=== PATIENT | female | born 1965 | race Caucasian/White ===

== ENCOUNTER → 2016-11-29 | Outpatient (CLI) | payer BC ==
[~2016-11-29] MED LIST: CHOLTAB3 PO; INSPMPHMLG; PRLSR20 PO
[2016-11-29 18:05] LABS: ALT/SGPT 23 U/L (12-78); AST/SGOT 22 U/L (15-37); BLOOD UREA NITROGEN 14 mg/dl (7-18); BUN/CREATININE RATIO 16.1 (10-20); CALCIUM 8.5 mg/dl (8.5-10.1); CARBON DIOXIDE 27 mmol/L (21-32); CHLORIDE 107 mmol/L (98-107); CREATININE 0.89 mg/dl (0.60-1.20); GLUCOSE 144 mg/dl (70-99); POTASSIUM 4.1 mmol/L (3.5-5.1); SODIUM 141 mmol/L (136-145)
[2016-11-29 18:16] LABS: ALB/GLOB RATIO 1.2 (0.9-2); ALKALINE PHOSPHATASE 57 U/L (45-117)
[2016-11-30 06:46] LABS: ESTIMATED AVERAGE GLUCOSE 200 mg/dl; HA1C FLAG Normal (Normal)
== END | disposition home or self-care (01) ==
LOC: C.LAB1850 16:53
PROVIDERS: ATTEND Internal Medicine
DX: E06.3 Autoimmune thyroiditis (principal); E55.9 Vitamin D deficiency, unspecified; E10.9 Type 1 diabetes mellitus without complications

== ENCOUNTER → 2017-04-22 | Outpatient (CLI) | payer BC ==
[2017-04-22 16:36] LABS: CHOLESTEROL/HDL RATIO 2.1
[2017-04-22 17:10] LABS: RATIO 25.1 mcg/mg (0-30.0)
[2017-04-23 07:06] LABS: ESTIMATED AVERAGE GLUCOSE 203 mg/dl; HA1C FLAG Normal (Normal)
== END | disposition home or self-care (01) ==
LOC: C.LAB1850 15:12
PROVIDERS: ATTEND Internal Medicine
DX: E10.9 Type 1 diabetes mellitus without complications (principal); E55.9 Vitamin D deficiency, unspecified

== ENCOUNTER → 2017-06-03 | Outpatient (CLI) | payer BC ==
--- NOTE | 2017-06-04 14:37 | MAMMOGRAPHY REPORT ---
BILATERAL DIGITAL SCREENING MAMMOGRAM TOMOSYNTHESIS WITH CAD: 06/03/2017 CLINICAL HISTORY: Routine screening. Patient has no complaints. TECHNIQUE: Breast tomosynthesis in addition to standard 2D mammography was performed. Current study was also evaluated with a Computer Aided Detection (CAD) system. COMPARISON: Comparison is made to exams dated: 12/27/2015 mammogram, 12/22/2014 mammogram, 05/19/2012 ben mogram, 11/05/2011 mammogram, 11/05/2011 ultrasound, and 10/30/2011 mammogram - [facility] nter. BREAST COMPOSITION: There are scattered areas of fibroglandular density in both breasts. FINDINGS: Decreased prominence of an asymmetry in the subareolar right breast. Scattered punctate b enign-appearing microcalcifications. No new suspicious mass, architectural distortion or cluster of microcalcifications is seen. IMPRESSION: ACR BI-RADS CATEGORY 1: NEGATIVE There is no mammographic evidence of malignancy. A 1 year screening mammogram is recommended. The pa tient will receive written notification of the results. Approximately 10% of breast cancers are not detected with mammography. A negative mammographic report should not delay biopsy if a clinically suggestive mass is present. Nidia Aparicio M.D. ay/:06/03/2017 16:26:40 [employer] Operator: Courtney AVILES)(Karla), [facility] letter sent: Normal 1/2 BI-RADS Code: ACR BI-RADS Category 1: Negative
== END | disposition home or self-care (01) ==
LOC: C.MAMM 08:36
PROVIDERS: ATTEND Obstetrics & Gynecology
DX: Z12.31 Encounter for screening mammogram for malignant neoplasm of breast (principal)

== ENCOUNTER → 2017-09-25 | Outpatient (CLI) | payer BC | END | disposition home or self-care (01) | LOC: C.PAPS 12:40 | PROVIDERS: ATTEND Obstetrics & Gynecology | DX: Z01.419 Encounter for gynecological examination (general) (routine) without abnormal findings (principal) ==

== ENCOUNTER → 2017-11-04 | Outpatient (CLI) | payer BC | LOC: C.LABSPEC 13:40 | PROVIDERS: ATTEND Physician Assistant | DX: N39.0 Urinary tract infection, site not specified (principal) ==

== ENCOUNTER → 2018-01-01 | Outpatient (CLI) | payer BC ==
[2018-01-02 07:13] LABS: HEMOGLOBIN A1C 8.1 % (4.5-5.6)
== END | disposition home or self-care (01) ==
LOC: C.LAB1850 16:01
PROVIDERS: ATTEND Internal Medicine
DX: E10.9 Type 1 diabetes mellitus without complications (principal)

== ENCOUNTER → 2018-05-21 | Outpatient (CLI) | payer BC ==
[2018-05-21 12:37] LABS: HEMOGLOBIN A1C 9.1 % (4.5-5.6)
[2018-05-21 12:51] LABS: ALBUMIN 3.9 gm/dl (3.4-5.0); ALKALINE PHOSPHATASE 52 U/L (45-117); ALT/SGPT 25 U/L (12-78); AST/SGOT 16 U/L (15-37); BLOOD UREA NITROGEN 11 mg/dl (7-18); CALCIUM 8.9 mg/dl (8.5-10.1); CARBON DIOXIDE 27 mmol/L (21-32); CHOLESTEROL 182 mg/dl (0-200); CREATININE 0.61 mg/dl (0.60-1.20); GLUCOSE 139 mg/dl (70-99); LDL CHOLESTEROL CALCULATED 93 mg/dl; SODIUM 138 mmol/L (136-145); TOTAL PROTEIN 6.9 gm/dl (6.4-8.2)
[2018-05-21 12:56] LABS: CREATININE RANDOM URINE 27.3 mg/dl
== END | disposition home or self-care (01) ==
LOC: C.LAB1850 10:43
PROVIDERS: ATTEND Internal Medicine
DX: E06.3 Autoimmune thyroiditis (principal); R39.9 Unspecified symptoms and signs involving the genitourinary system; E10.9 Type 1 diabetes mellitus without complications; E55.9 Vitamin D deficiency, unspecified

== ENCOUNTER → 2018-06-09 | Outpatient (CLI) | payer BC ==
--- NOTE | 2018-06-09 14:38 | DIAGNOSTIC IMAGING REPORT ---
Thyroid ultrasonography CLINICAL HISTORY: GOITER, SILVER'S THYROIDITIS COMPARISON STUDY: 10/05/2010 FINDINGS: The right lobe of thyroid measures 38 x 13 x 14 mm. The left lobe of thyroid measures 43 x 13 x 18 mm. Both lobes are heterogeneous in echotexture. There is an isoechoic wider than tall 13 x 12 x 6 mm nodule arising from the right isthmus. This remains unchanged in size. There is a lower pole hypoechoic left lobe nodule measuring 6 x 5 x 6 mm. This previously measured 4 x 4 x 3 mm. IMPRESSION: 1. Bilateral thyroid nodules essentially unchanged in size. Diffuse heterogeneous thyroid echotexture consistent with the clinical history of thyroiditis. Electronically signed by: Darrel Wood M.D. 06/09/2018 2:37 PM Dictated Date/Time: 06/09/2018 2:35 PM
== END | disposition home or self-care (01) ==
LOC: C.ULTR 14:03
PROVIDERS: ATTEND Internal Medicine Endocrinology, Diabetes & Metabolism
DX: E04.9 Nontoxic goiter, unspecified (principal); E06.3 Autoimmune thyroiditis

== ENCOUNTER 2021-07-23 17:08 | Inpatient (IN) ==
[2021-07-23] MEDS ORDERED: ONDANSETRON INJ 2 MG/ML 2 ML VIAL IV STA (18:06)
[2021-07-23] MEDS ORDERED: HYDROmorphone INJ 0.5 MG/0.5 ML SYR IV STA (18:06)
--- NOTE | 2021-07-23 18:07 | Emergency Department Note ---
History of Present Illness General Chief complaint: Leg Injury/Pain Stated complaint: FALL, LEG PAIN Time Seen by Provider: 07/23/21 17:47 History of Present Illness Maximum Pain Intensity: 7 This is a 55-year-old female with a history of type I diabetes that presents to the emergency department via private vehicle accompanied by male with complaints of" fall, right hip pain". The patient states that earlier today around 3:20 PM she was stepping over an area and her foot became stuck/hooked causing her to fall. She landed on the right hip. She denies striking her head or loss of con sciousness. Current pain in the right hip at this time is an 8/10. She cannot bear weight to the right lower extremity secondary to pain. Even simple movements of the right hip are quite painful. She denies having pain like this previously. No previous history of right hip fracture. Current pain /10. She points to the right proximal anterior and lateral thigh region as the location of pain. Home Medications Medication Instructions Recorded Confirmed Type aspirin 81 mg tablet,delayed 81 mg PO HS 08/28/18 07/23/21 History release blood sugar diagnostic (OneTouch #200 ea 12/07/19 11/11/20 Rx Ultra Blue Test Strip) cholecalciferol (vitamin D3) 50 4,000 units PO QDL cap 12/22/19 07/23/21 History mcg (2,000 unit) capsule (Vitamin D3) glucagon HCl 1 mg solution for 1 mg SQ Q20M PRN #1 ea 12/25/19 07/23/21 Rx injection (Glucagon (HCl) Emergency Kit) levothyroxine 75 mcg tablet 75 mcg PO QAM #90 tab 09/27/20 07/23/21 Rx omeprazole 20 mg tablet,delayed 20 mg PO QAM #90 tab 11/23/20 07/23/21 Rx release OneTouch Ultra2 Meter #1 ea NS 12/14/20 Rx (blood-glucose meter) OneTouch Ultra Blue Test Strip #200 ea NS 12/21/20 Rx (blood sugar diagnostic) flash glucose sensor (FreeStyle #6 ea 02/13/21 Rx Osorio 2 Sensor) insulin lispro 100 unit/mL 0 unit CONTINUOUS SUBCUTANEOUS 07/23/21 07/23/21 History subcutaneous solution (Humalog INFUSION CONTINOUS U-100 Insulin) simvastatin 20 mg tablet 20 mg PO HS 07/23/21 07/23/21 History Allergies Allergy/AdvReac Type Severity Reaction Status Date / Time Penicillins Allergy Mild Rash Verified 07/23/21 20:46 Sulfa (Sulfonamide Allergy Unknown Unknown Verified 07/23/21 20:46 Antibiotics) adhesive AdvReac Mild SOME TAPE Verified 07/23/21 20:46 IRRITATING amoxicillin AdvReac Mild Rash Verified 07/23/21 20:46 Past Med/Surg History Medical History Diabetes mellitus type 1 diagnosed at age 26 Diabetic peripheral 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 GERD (gastroesophageal reflux disease) Daniel's thyroiditis Hyperlipidemia Hypothyroidism Left ankle sprain PVCs (premature ventricular contractions) Surgical History History of bilateral tubal ligation History of section x2 History of dilatation and curettage x2 Family History Brother Family hx colonic polyps Social History Smoking Status: Never smoker Second Hand Exposure: No; Hx Alcohol Use: Yes Alcohol type: hard liquor Hx Substance Use: No Preferred Language: Kinyarwanda Communication Ability: Effective Desktop Administrator Required: No Beliefs That Will Affect Care: None marital status: Current Living Situation: Spouse Current Living Situation Comment: lives with and 2 kids Feels Safe at Home: Yes Assistive Devices: None Review of Systems A total of 10 systems reviewed and were otherwise negative Physical Exam Vital Signs Vital Signs - 24 hr 07/23/21 17:15 07/23/21 19:06 07/23/21 19:08 Temperature 37.1 C Temperature Source Temporal Artery Scan Pulse Rate 69 68 Pulse Rhythm Regular Respiratory Rate 18 18 18 Respiratory Depth Normal Respiratory Pattern Regular Blood Pressure 164/79 H Blood Pressure Mean 107 Pulse Oximetry 99 97 96 Oxygen Delivery Method Room Air Room Air Sepsis Recent Fever Within 48 Hours No Sepsis New/Unexplained Change in Mental Status No Sepsis Action Taken by Nursing No Action Required VITAL SIGNS - Vital signs and nursing notes were reviewed. Stable and afebrile. GENERAL - 55- year-old female appearing her stated age who is in no acute distress but appears to be in pain. Communicates well with provider and answers questions appropriately. SKIN - Without rashes. HEAD - NC/AT. LUNGS - Chest wall symmetric without accessory muscle use, intercostals retractions, or central cyanosis. Normal vesicular breath sounds CTA B/L. No wheezes, rales, or rhonchi appreciated. CARDIAC - RRR with S1/S2. No murmur, rubs, or gallops appreciated. EXTREMITIES - No clubbing or peripheral cyanosis. R lateral hip TTP noted. Decreased ROM of R hip secondary to pain within the R hip region.+5/5 strength noted in UE/LE bilaterally. R dorsalis pedis pulse WNL. Cap refill WNL. NEUROLOGIC - Cranial nerves II through XII grossly intact. PSYCH - A&Ox3 and cooperates fully with examiner. Pt is very pleasant and interacts well with examiner. Course Administered Medications Acetaminophen (Acetaminophen 500 Mg Tab) 1,000 mg PO Q8 [facility] Stop: 08/23/21 21:59 Last Admin: 07/24/21 23:31 Dose: 1,000 mg Documented by: [id number] Aspirin (Aspirin 81 Mg Ectab) 81 mg PO BID [facility] Stop: 08/23/21 20:59 Last Admin: 07/24/21 21:20 Dose: 81 mg Documented by: [id number] Dextrose (Dextrose 50% 50 Ml Syringe) 25 - 50 ml IV UD PRN; Protocol PRN Reason: Hypoglycemia Protocol Stop: 08/22/21 22:44 Last Admin: 07/24/21 11:19 Dose: 25 ml Documented by: [id number] Docusate Sodium (Docusate Sodium 100 Mg Cap) 100 mg PO BID [facility] Stop: 08/23/21 20:59 Last Admin: 07/24/21 21:20 Dose: 100 mg Documented by: [id number] Ferrous Gluconate (Ferrous Gluconate 324 Mg Tab) 324 mg PO BIDM [facility] Stop: 08/23/21 16:59 Last Admin: 07/24/21 18:40 Dose: 324 mg Documented by: [id number] Hydromorphone HCl (Hydromorphone Inj 0.5 Mg/0.5 Ml Syr) 0.5 mg IV Q3H PRN PRN Reason: Pain (6,7,8,9,10) Stop: 08/06/21 22:27 Last Admin: 07/24/21 19:23 Dose: 0.5 mg Documented by: [id number] Admin: 07/24/21 08:44 Dose: 0.5 mg Documented by: [id number] Admin: 07/24/21 03:52 Dose: 0.5 mg Documented by: [id number] Admin: 07/23/21 23:16 Dose: 0.5 mg Documented by: [id number] Sodium Chloride (Nss 1000ml) 1,000 mls @ 100 mls/hr IV .Q10H [facility] Stop: 07/25/21 06:00 Last Admin: 07/24/21 16:50 Dose: Not Given Documented by: [id number] Cefazolin Sodium (Ancef 1000mg) 1,000 mg in 7.5 mls @ 2.5 mls/min IV Q8H [facility]; Protocol Stop: 07/25/21 05:02 Last Admin: 07/24/21 21:21 Dose: 2.5 mls/min Documented by: [id number] Insulin Human Lispro (Humalog Insulin Pump) 1 ea N/A ACHS [facility]; Protocol Stop: 08/23/21 16:59 Last Admin: 07/24/21 23:25 Dose: 1 ea Documented by: [id number] Admin: 07/24/21 18:40 Dose: 1 ea Documented by: [id number] Ketorolac Tromethamine (Ketorolac 30 Mg/Ml Vial) 30 mg IV Q6H [facility] Stop: 07/26/21 12:01 Last Admin: 07/24/21 17:19 Dose: 30 mg Documented by: [id number] Levothyroxine Sodium (Levothyroxine Sodium 75 Mcg Tablet) 75 mcg PO DAILYBB [facility] Stop: 08/23/21 06:29 Last Admin: 07/24/21 05:44 Dose: 75 mcg Documented by: [id number] Multivitamins (Multivitamin Tab) 1 tab PO QAM [facility] Stop: 08/23/21 08:59 Last Admin: 07/24/21 10:54 Dose: Not Given Documented by: [id number] Ondansetron HCl (Ondansetron Inj 2 Mg/Ml 2 Ml Vial) 4 mg IV Q6H PRN PRN Reason: Nausea And Vomiting Stop: 08/23/21 16:28 Last Admin: 07/24/21 23:38 Dose: 4 mg Documented by: [id number] Sennosides (Senna 8.6 Mg Tab) 17.2 mg PO [facility] Stop: 08/23/21 20:59 Last Admin: 07/24/21 21:20 Dose: 17.2 mg Documented by: [id number] Simvastatin (Simvastatin 20 Mg Tab) 20 mg PO QPM [facility] Stop: 08/22/21 22:59 Last Admin: 07/24/21 21:20 Dose: 20 mg Documented by: [id number] Admin: 07/23/21 23:16 Dose: 20 mg Documented by: [id number] Vitamin D (Cholecalciferol 1,000 Units 25 Mcg Tab) 4,000 units PO DAILY [facility] Stop: 08/23/21 08:59 Last Admin: 07/24/21 10:54 Dose: Not Given Documented by: [id number] Discontinued Medications Hydrocodone Bitart/Acetaminophen (Hydrocodone/Acetamophen 5/325mg Tab) 2 tab PO Q4H PRN PRN Reason: SEVERE Pain (7,8,9,10) Stop: 08/06/21 22:27 Last Admin: 07/24/21 10:38 Dose: 2 tab Documented by: [id number] Admin: 07/24/21 01:28 Dose: 2 tab Documented by: [id number] Bupivacaine HCl (Bupivacaine 0.5 % 5 Mg/1 Ml Mpf 30ml Vial) Confirm Administered Dose 60 ml .ROUTE .STK-MED ONE Stop: 07/24/21 12:11 Last Admin: 07/24/21 13:48 Dose: 60 ml Documented by: [id number] Epinephrine HCl (Epinephrine Inj 1 Mg/Ml Amp) Confirm Administered Dose 1 mg .ROUTE .STK-MED ONE Stop: 07/24/21 12:10 Last Admin: 07/24/21 13:48 Dose: 0.3 mg Documented by: [id number] Hydromorphone HCl (Hydromorphone Inj 0.5 Mg/0.5 Ml Syr) 0.5 mg IV NOW STA Stop: 07/23/21 18:07 Last Admin: 07/23/21 18:28 Dose: 0.5 mg Documented by: [id number] Hydromorphone HCl (Hydromorphone Inj 0.5 Mg/0.5 Ml Syr) 0.5 mg IV Q30M PRN PRN Reason: Pain Stop: 08/06/21 19:05 Last Admin: 07/23/21 21:43 Dose: 0.5 mg Documented by: [id number] Admin: 07/23/21 19:27 Dose: 0.5 mg Documented by: [id number] Lactated Ringer's (Lr) 1,000 mls @ 100 mls/hr IV .Q10H [facility] Stop: 08/22/21 22:27 Last Infusion: 07/24/21 23:52 Dose: 0 mls/hr Documented by: [id number] Admin: 07/24/21 08:49 Dose: 100 mls/hr Documented by: [id number] Infusion: 07/24/21 08:49 Dose: 100 mls/hr Documented by: [id number] Admin: 07/23/21 23:04 Dose: 100 mls/hr Documented by: [id number] Cefazolin Sodium (Ancef 2000mg) 2,000 mg in 15 mls @ 3.75 mls/min IV ONCE ONE Stop: 07/24/21 13:50 Last Admin: 07/24/21 13:04 Dose: 3.75 mls/min Documented by: [id number] Tranexamic Acid (Tranexamic Acid / 0.7% Nacl) 1,000 mg in 100 mls @ 600 mls/hr IV Q6H [facility] Stop: 07/24/21 21:09 Last Infusion: 07/24/21 23:17 Dose: 0 mls/hr Documented by: [id number] Admin: 07/24/21 23:06 Dose: 600 mls/hr Documented by: [id number] Insulin Human Lispro (Humalog Insulin Pump) 1 ea N/A Q6 [facility]; Protocol Stop: 08/23/21 05:59 Last Admin: 07/24/21 13:58 Dose: Not Given Documented by: [id number] Admin: 07/24/21 05:48 Dose: 1 ea Documented by: [id number] Miscellaneous (Patient's Height And/Or Weight Needed) 1 ea N/A Q2H [facility] Stop: 08/22/21 22:44 Last Admin: 07/24/21 01:11 Dose: Not Given Documented by: [id number] Admin: 07/23/21 23:32 Dose: 1 ea Documented by: [id number] Ondansetron HCl (Ondansetron Inj 2 Mg/Ml 2 Ml Vial) 4 mg IV NOW STA Stop: 07/23/21 18:07 Last Admin: 07/23/21 18:28 Dose: 4 mg Documented by: [id number] Senna/Docusate Sodium (Docusate Sodium/Senna 50/8.6mg Tab) 2 tab PO HS [facility] Stop: 08/22/21 22:59 Last Admin: 07/23/21 23:16 Dose: 2 tab Documented by: [id number] Tranexamic Acid (Tranexamic Acid / 0.7% Nacl 1000mg/100ml Bag) Confirm Administered Dose 1,000 mg IV .STK-MED ONE Stop: 07/24/21 12:45 Last Admin: 07/24/21 13:07 Dose: 1,000 mg Documented by: [id number] Medical Decision Making Laboratory Data Result diagrams: 07/24/21 07:19 07/24/21 07:19 Lab Results 07/23/21 07/23/21 07/23/21 Range/Units 18:09 18:26 18:26 WBC 8.74 (4.8-10.8) K/uL RBC 5.03 (4.2-5.4) M/uL Hgb 13.8 (12.0-16.0) g/dL Hct 41.8 (37-47) % MCV 83.1 (80-100) fL MCH 27.4 (25-34) pg MCHC 33.0 (32-36) g/dL RDW Std Deviation 39.6 (36.4-46.3) fL RDW Coeff of Mary 13.2 (11.5-14.5) % Plt Count 190 (130-400) K/uL MPV 10.8 H (7.4-10.4) fL Immature Gran % (Auto) 0.5 % Neut % (Auto) 83.6 % Lymph % (Auto) 10.6 % Grayson % (Auto) 4.9 % Eos % (Auto) 0.3 % Baso % (Auto) 0.1 % Neut # (Auto) 7.30 H (1.4-6.5) K/uL Lymph # (Auto) 0.93 L (1.2-3.4) K/uL Grayson # (Auto) 0.43 (0.11-0.59) K/uL Eos # (Auto) 0.03 (0-0.5) K/uL Baso # (Auto) 0.01 (0-0.2) K/uL Immature Gran # (Auto) 0.04 H (0.00-0.02) K/uL Sodium 134 L (136-145) mmol/L Potassium 4.0 (3.5-5.1) mmol/L Chloride 106 (98-107) mmol/L Carbon Dioxide 25 (21-32) mmol/L Anion Gap 3.0 (3-11) BUN 12 (7-18) mg/dl Creatinine 0.96 (0.6-1.2) mg/dl Est Cr Clr Drug Dosing Not Reportable Est GFR ( Amer) 78.3 ml/min Est GFR (Non-Af Amer) 67.5 ml/min BUN/Creatinine Ratio 13.0 (10-20) Glucose 388 H* (70-99) mg/dl POC Glucose 360 H* (70-99) mg/dl Estimat Average Glucose mg/dl Hemoglobin A1c (4.5-5.6) % Calcium 9.0 (8.5-10.1) mg/dl Total Bilirubin 0.5 (0.2-1) mg/dl AST 19 (15-37) U/L ALT 25 (12-78) U/L Alkaline Phosphatase 84 (45-117) U/L Total Protein 7.5 (6.4-8.2) gm/dl Albumin 4.0 (3.4-5.0) gm/dl Globulin 3.5 (2.5-4.0) gm/dl Albumin/Globulin Ratio 1.1 (0.9-2) Beta-Hydroxybutyric Acd 2.56 (0.2-2.81) mg/dl HCG, Qual (Negative) 07/23/21 07/23/21 07/23/21 Range/Units 18:26 18:26 19:37 WBC (4.8-10.8) K/uL RBC (4.2-5.4) M/uL Hgb (12.0-16.0) g/dL Hct (37-47) % MCV (80-100) fL MCH (25-34) pg MCHC (32-36) g/dL RDW Std Deviation (36.4-46.3) fL RDW Coeff of Mary (11.5-14.5) % Plt Count (130-400) K/uL MPV (7.4-10.4) fL Immature Gran % (Auto) % Neut % (Auto) % Lymph % (Auto) % Grayson % (Auto) % Eos % (Auto) % Baso % (Auto) % Neut # (Auto) (1.4-6.5) K/uL Lymph # (Auto) (1.2-3.4) K/uL Grayson # (Auto) (0.11-0.59) K/uL Eos # (Auto) (0-0.5) K/uL Baso # (Auto) (0-0.2) K/uL Immature Gran # (Auto) (0.00-0.02) K/uL Sodium (136-145) mmol/L Potassium (3.5-5.1) mmol/L Chloride (98-107) mmol/L Carbon Dioxide (21-32) mmol/L Anion Gap (3-11) BUN (7-18) mg/dl Creatinine (0.6-1.2) mg/dl Est Cr Clr Drug Dosing Est GFR ( Amer) ml/min Est GFR (Non-Af Amer) ml/min BUN/Creatinine Ratio (10-20) Glucose (70-99) mg/dl POC Glucose 322 H* (70-99) mg/dl Estimat Average Glucose 197 mg/dl Hemoglobin A1c 8.5 H (4.5-5.6) % Calcium (8.5-10.1) mg/dl Total Bilirubin (0.2-1) mg/dl AST (15-37) U/L ALT (12-78) U/L Alkaline Phosphatase (45-117) U/L Total Protein (6.4-8.2) gm/dl Albumin (3.4-5.0) gm/dl Globulin (2.5-4.0) gm/dl Albumin/Globulin Ratio (0.9-2) Beta-Hydroxybutyric Acd (0.2-2.81) mg/dl HCG, Qual Negative (Negative) 07/23/21 Range/Units 19:39 WBC (4.8-10.8) K/uL RBC (4.2-5.4) M/uL Hgb (12.0-16.0) g/dL Hct (37-47) % MCV (80-100) fL MCH (25-34) pg MCHC (32-36) g/dL RDW Std Deviation (36.4-46.3) fL RDW Coeff of Mary (11.5-14.5) % Plt Count (130-400) K/uL MPV (7.4-10.4) fL Immature Gran % (Auto) % Neut % (Auto) % Lymph % (Auto) % Grayson % (Auto) % Eos % (Auto) % Baso % (Auto) % Neut # (Auto) (1.4-6.5) K/uL Lymph # (Auto) (1.2-3.4) K/uL Grayson # (Auto) (0.11-0.59) K/uL Eos # (Auto) (0-0.5) K/uL Baso # (Auto) (0-0.2) K/uL Immature Gran # (Auto) (0.00-0.02) K/uL Sodium (136-145) mmol/L Potassium (3.5-5.1) mmol/L Chloride (98-107) mmol/L Carbon Dioxide (21-32) mmol/L Anion Gap (3-11) BUN (7-18) mg/dl Creatinine (0.6-1.2) mg/dl Est Cr Clr Drug Dosing Est GFR ( Amer) ml/min Est GFR (Non-Af Amer) ml/min BUN/Creatinine Ratio (10-20) Glucose (70-99) mg/dl POC Glucose 292 H (70-99) mg/dl Estimat Average Glucose mg/dl Hemoglobin A1c (4.5-5.6) % Calcium (8.5-10.1) mg/dl Total Bilirubin (0.2-1) mg/dl AST (15-37) U/L ALT (12-78) U/L Alkaline Phosphatase (45-117) U/L Total Protein (6.4-8.2) gm/dl Albumin (3.4-5.0) gm/dl Globulin (2.5-4.0) gm/dl Albumin/Globulin Ratio (0.9-2) Beta-Hydroxybutyric Acd (0.2-2.81) mg/dl HCG, Qual (Negative) Imaging Data Radiologist's Impression: Femur X-Ray 07/23/21 18:06 XR femur RT 2V routine, XR pelvis 1-2V routine CLINICAL HISTORY: Fall, R leg pain COMPARISON STUDY: None. FINDINGS: Impacted right femoral neck fracture. No dislocation. No fractures within the pelvis, left hip, or distal right femur. The sacrum appears intact. IMPRESSION: Impacted right femoral neck fracture. ACT 112: Negative or not required by law. Electronically signed by: Drew Tian M.D. 07/23/2021 6:49 PM Pelvis X-Ray 07/23/21 18:06 XR femur RT 2V routine, XR pelvis 1-2V routine CLINICAL HISTORY: Fall, R leg pain COMPARISON STUDY: None. FINDINGS: Impacted right femoral neck fracture. No dislocation. No fractures within the pelvis, left hip, or distal right femur. The sacrum appears intact. IMPRESSION: Impacted right femoral neck fracture. ACT 112: Negative or not required by law. Electronically signed by: Drew Tian M.D. 07/23/2021 6:[address] 07/23/21 19:[address] DOSE: 255.15 mGy.cm HISTORY: Fall, R hip pain, fracture TECHNIQUE: Multiaxial CT images of the right hip were performed and reformatted in the sagittal and coronal plane without the use of contrast. A dose lowering technique was utilized adhering to the principles of ALARA. COMPARISON: Right femur 07/23/2021. FINDINGS: There is again noted an impacted right femoral neck fracture with posterior angulation. No dislocation. The visualized pelvic bones are intact. IMPRESSION: Impacted right femoral neck fracture. No dislocation. ACT 112: Negative or not required by law. Electronically signed by: Drew Tian M.D. 07/23/2021 8:01 PM MDM Narrative Patient was seen and evaluated as above in room D07. Review was performed of nursing notes and vital signs. I did review pertinent previous visits and pa tient history. After obtaining a thorough history and physical examination the above work up was performed. Patient presents to us today status post mechanical fall with isolated right hip pain. She is in pain but overall appears clinically well. Vital signs stable. Options of care were discussed with the patient. IV access was established. Labs were drawn. She was given IV analgesics. PRN analgesics also ordered. X-ray of the pelvis and right femur were ordered. X-ray as above. There is a fracture. I discussed this with the on-call orthopedist, Dr. Salcido. At this time we are in agreement to admit the patient to the medicine service and obtain a CT scan of the right hip for preoperative planning. Patient amenable to plan. NPO after midnight. Case discussed with the hospitalist. Please refer to further documentation regarding her stay. Laboratory studies reveal no leukocytosis or significant anemia. No emergent metabolic disturbance. HCG negative. Patient was hyperglycemic but did prefer to manage her insulin pump and provide corrective doses. I believe this is reasonable. After she administered a dose of insulin, BSG was obtained to ensure adequate trends. While in the department, I personally reevaluated the patient and the patient was found to be resting comfortably but was in pain when she moved or participated in imaging studies. GCS: 15 In the evaluation and treatment of this patient the following differential diagnoses were entertained: fracture, dislocation, subluxation, contusion, among others. Impression & Plan Closed fracture of neck of right femur Discharge Plan Visit Data Chief Complaint: Leg Injury/Pain Stated Complaint: FALL, LEG PAIN ED Midlevel Provider: Victor M Solis Discharge Problem: Closed fracture of neck of right femur Patient Disposition: Admitted As Inpatient Condition: Good Discharge Instructions Interventions: ED Discharge Assessment Last Done: 07/23/21 22:30
[2021-07-23 18:34] LABS: Basophils # (auto) 0.01 K/uL (0-0.2); Basophils % (auto) 0.1 %; Eosinophils # (auto) 0.03 K/uL (0-0.5); Eosinophils % (auto) 0.3 %; Hematocrit (blood only) 41.8 % (37-47); Hemoglobin 13.8 g/dL (12.0-16.0); Immature Granulocytes # (auto) 0.04 K/uL (0.00-0.02); Immature Granulocytes % (auto) 0.5 %; Lymphocytes # (auto) 0.93 K/uL (1.2-3.4); Lymphocytes % (auto) 10.6 %; Mean Corpuscular Hemoglobin 27.4 pg (25-34); Mean Corpuscular Volume 83.1 fL (80-100); Mean Platelet Volume 10.8 fL (7.4-10.4); Monocytes # (auto) 0.43 K/uL (0.11-0.59); Monocytes % (auto) 4.9 %; Neutrophils % (auto) 83.6 %; Platelet Count 190 K/uL (130-400); RDW Coefficient of Variation 13.2 % (11.5-14.5); RDW Standard Deviation 39.6 fL (36.4-46.3); Red Blood Count 5.03 M/uL (4.2-5.4); White Blood Count 8.74 K/uL (4.8-10.8)
--- NOTE | 2021-07-23 18:50 | XRay Report ---
XR femur RT 2V routine, XR pelvis 1-2V routine CLINICAL HISTORY: Fall, R leg pain COMPARISON STUDY: None. FINDINGS: Impacted right femoral neck fracture. No dislocation. No fractures within the pelvis, left hip, or distal right femur. The sacrum appears intact. IMPRESSION: Impacted right femoral neck fracture. ACT 112: Negative or not required by law. Electronically signed by: Drew Tian M.D. 07/23/2021 6:49 PM
[2021-07-23 19:13] LABS: Alanine Aminotransferase 25 U/L (12-78); Albumin Globulin Ratio 1.1 (0.9-2); Alkaline Phosphatase 84 U/L (45-117); Aspartate Aminotransferase 19 U/L (15-37); Bilirubin,Total 0.5 mg/dl (0.2-1); Blood Urea Nitrogen 12 mg/dl (7-18); Carbon Dioxide 25 mmol/L (21-32); Chloride 106 mmol/L (98-107); Est GFR (African American) 78.3 ml/min; Est GFR (Non-African American) 67.5 ml/min; Globulin 3.5 gm/dl (2.5-4.0); Glucose 388 mg/dl (70-99); Sodium 134 mmol/L (136-145); Total Protein 7.5 gm/dl (6.4-8.2)
[2021-07-23 19:19] LABS: Pregnancy Test, Serum Negative (Negative)
[2021-07-23] MEDS: HYDROmorphone INJ 0.5 MG/0.5 ML SYR IV PRN ×3 (19:27→23:16)
[2021-07-23 19:31] LABS: Beta-Hydroxybutyrate 2.56 mg/dl (0.2-2.81)
--- NOTE | 2021-07-23 20:02 | CT Scan Report ---
RIGHT HIP CT CT DOSE: 255.15 mGy.cm HISTORY: Fall, R hip pain, fracture TECHNIQUE: Multiaxial CT images of the right hip were performed and reformatted in the sagittal and c oronal plane without the use of contrast. A dose lowering technique was utilized adhering to the chito nciSandy. COMPARISON: Right femur 07/23/2021. FINDINGS: There is again noted an impacted right femoral neck fracture with posterior angulation. No dislocation. The visualized pelvic bones are intact. IMPRESSION: Impacted right femoral neck fracture. No dislocation. ACT 112: Negative or not required by law. Electronically signed by: Drew Tian M.D. 07/23/2021 8:01 PM
--- NOTE | 2021-07-23 20:47 | History & Physical Report ---
Date of Service July 23, 2021 Assessment & Plan (1) Closed fracture of neck of right femur: Plan: N.p.o. after midnight Acetaminophen 650 mg p.o. every 6 hours as needed mild pain or fever [place] 5/325, 1 p.o. daily 4 hours as needed moderate pain [place] 5/325, 2 p.o. every 4 hours as needed severe pain Dilaudid 0.25 mg IV every 3 hours as needed moderate pain Dilaudid 0.5 mg IV every 3 hours as needed severe pain Zofran 4 mg IV every 6 hours as needed LR at 100 mils per hour Brito catheter Consult to orthopedic surgery Dr. Stiven Salcido (2) Diabetes mellitus type 1, uncontrolled: Plan: Patient will continue use her own insulin pump and coverage (3) Dyslipidemia: Plan: Continue simvastatin 20 mg at bedtime (4) Gastroesophageal reflux disease: Plan: Continue omeprazole/pantoprazole (5) Hypothyroidism: Plan: Continue levothyroxine sent 5 mcg daily History of Present Illness Chief Complaint: The patient presents to the emergency department with complaint of right hip pain after a fall Primary Care Provider: Elisa Call MD The patient is a 55-year-old female with a past medical history including diabetes mellitus, hypothyroidism, GERD, and hyperlipidemia who presents to the emergency department after acute development of right hip pain status post mechanical fall. X-ray in the emergency department revealed a closed impacted right femoral neck fracture. Dr. Salcido orthopedic surgery was consulted by the ED, and asked that the patient be admitted to medical service, and that a CT of the hip be performed Allergies Allergy/AdvReac Type Severity Reaction Status Date / Time Penicillins Allergy Mild Rash Verified 07/23/21 20:46 Sulfa (Sulfonamide Allergy Unknown Unknown Verified 07/23/21 20:46 Antibiotics) adhesive AdvReac Mild SOME TAPE Verified 07/23/21 20:46 IRRITATING amoxicillin AdvReac Mild Rash Verified 07/23/21 20:46 Home Medications Medication Instructions Recorded Confirmed Type aspirin 81 mg tablet,delayed 81 mg PO HS 08/28/18 11/11/20 History release blood sugar diagnostic (OneTouch #200 ea 12/07/19 11/11/20 Rx Ultra Blue Test Strip) cholecalciferol (vitamin D3) 50 4,000 units PO DAILY cap 12/22/19 11/11/20 History mcg (2,000 unit) capsule (Vitamin D3) glucagon HCl 1 mg solution for 1 mg SQ Q20M PRN #1 ea 12/25/19 11/11/20 Rx injection (Glucagon (HCl) Emergency Kit) levothyroxine 75 mcg tablet 75 mcg PO QAM #90 tab 09/27/20 11/11/20 Rx omeprazole 20 mg tablet,delayed 20 mg PO QAM #90 tab 11/23/20 Rx release OneTouch Ultra2 Meter #1 ea NS 12/14/20 Rx (blood-glucose meter) OneTouch Ultra Blue Test Strip #200 ea NS 12/21/20 Rx (blood sugar diagnostic) flash glucose sensor (FreeStyle #6 ea 02/13/21 Rx Osorio 2 Sensor) insulin lispro 100 unit/mL 0 unit CONTINUOUS SUBCUTANEOUS 07/23/21 07/23/21 History subcutaneous solution (Humalog INFUSION CONTINOUS U-100 Insulin) simvastatin 20 mg tablet 20 mg PO HS 07/23/21 07/23/21 History Past Med/Surg History Medical History (Updated 07/23/21 @ 21:51 by Benito Drake MD) Diabetes mellitus type 1 diagnosed at age 26 Diabetic peripheral 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 GERD (gastroesophageal reflux disease) Daniel's thyroiditis Hyperlipidemia Hypothyroidism Left ankle sprain PVCs (premature ventricular contractions) Surgical History History of bilateral tubal ligation History of section x2 History of dilatation and curettage x2 Family History Brother Family hx colonic polyps Social History Smoking Status: Never smoker Second Hand Exposure: No; Hx Alcohol Use: Yes Alcohol type: hard liquor Hx Substance Use: No Preferred Language: Hungarian Communication Ability: Effective Clod Puller Required: No Beliefs That Will Affect Care: None Current Living Situation: Spouse and Family Current Living Situation Comment: lives with and 2 kids Feels Safe at Home: Yes Assistive Devices: Glasses Review of Systems Review of Systems: The patient denies chest pain, palpitations, shortness of breath, dyspnea on exertion, cough, sore throat, fevers, chills, sweats, fatigue, nausea, vomiting, diarrhea , constipation, abdominal pain, pelvic pain, blood in urine or stool, dysuria, urinary frequency or urgency, lightheadedness, dizziness, headache, memory loss, loss of consciousness, rash, abnormal bruising or bleeding, focal or generalized weakness, numbness or tingling in arms or left leg, generalized arthralgias or myalgias, back or neck pain, or night sweats. The review of systems is otherwise negative other than for that already noted above, and at least 10 systems have been reviewed. Physical Exam Physical Exam: The patient is awake, alert and oriented 3, well developed and well nourished, normocephalic and atraumatic, lying in bed and in mild to moderate acute distress secondary to right hip pain HEENT--PERRL, EOMI, mucous membranes and oropharynx normal. Neck--supple. No JVD. No bruits. Thyroid normal, trachea midline, no adenopathy. Heart--normal S1 and S2. No murmurs, rubs or gallops. Lungs--clear bilaterally, no respiratory distress, no accessory muscle use. Abdomen--normal bowel sounds and soft. Nontender. Nondistended, no hernias or masses, no organomegaly. Extremities--no cyanosis or clubbing. No edema. Dermatologic--normal skin turgor, normal color, no abnormal lymph nodes, no rash. Neurologic--cranial nerves II through XII grossly intact. Rheumatologic--limited exam Psychiatric--normal affect. Results & Data Results & Data ([facility]) Vital Signs (Past 12 Hours) Vital Signs Temp Pulse Resp BP Pulse Ox 07/23/21 19:08 18 96 07/23/21 19:06 68 18 97 07/23/21 17:15 98.8 F 69 18 164/79 H 99 Laboratory Results Laboratory Results WBC 8.74 K/uL (4.8-10.8) 07/23/21 18:26 RBC 5.03 M/uL (4.2-5.4) 07/23/21 18:26 Hgb 13.8 g/dL (12.0-16.0) 07/23/21 18:26 Hct 41.8 % (37-47) 07/23/21 18:26 MCV 83.1 fL (80-100) 07/23/21 18:26 MCH 27.4 pg (25-34) 07/23/21 18: MCHC 33.0 g/dL (32-36) 07/23/21 18: RDW Std Deviation 39.6 fL (36.4-46.3) 07/23/21 18: RDW Coeff of Mary 13.2 % (11.5-14.5) 07/23/21 18: Plt Count 190 K/uL (130-400) 07/23/21 18: MPV 10.8 fL (7.4-10.4) H 07/23/21 18: Immature Gran % (Auto) 0.5 % 07/23/21 18: Neut % (Auto) 83.6 % 07/23/21 18: Lymph % (Auto) 10.6 % 07/23/21 18: [place] % (Auto) 4.9 % 07/23/21 18: Eos % (Auto) 0.3 % 07/23/21 18: Baso % (Auto) 0.1 % 07/23/21 18: Neut # (Auto) 7.30 K/uL (1.4-6.5) H 07/23/21 18: Lymph # (Auto) 0.93 K/uL (1.2-3.4) L 07/23/21 18: [place] # (Auto) 0.43 K/uL (0.11-0.59) 07/23/21 18: Eos # (Auto) 0.03 K/uL (0-0.5) 07/23/21 18: Baso # (Auto) 0.01 K/uL (0-0.2) 07/23/21 18: Immature Gran # (Auto) 0.04 K/uL (0.00-0.02) H 07/23/21 18: Sodium 134 mmol/L (136-145) L 07/23/21 18: Potassium 4.0 mmol/L (3.5-5.1) 07/23/21 18: Chloride 106 mmol/L (98-107) 07/23/21 18: Carbon Dioxide 25 mmol/L (21-32) 07/23/21 18: Anion Gap 3.0 (3-11) 07/23/21 18:26 BUN 12 mg/dl (7-18) 07/23/21 18:26 Creatinine 0.96 mg/dl (0.6-1.2) 07/23/21 18:26 Est Cr Clr Drug Dosing Not Reportable 07/23/21 18:26 Est GFR ( Amer) 78.3 ml/min 07/23/21 18:26 Est GFR (Non-Af Amer) 67.5 ml/min 07/23/21 18:26 BUN/Creatinine Ratio 13.0 (10-20) 07/23/21 18:26 Glucose 388 mg/dl (70-99) H* 07/23/21 18:26 POC Glucose 292 mg/dl (70-99) H 07/23/21 19:39 Calcium 9.0 mg/dl (8.5-10.1) 07/23/21 18:26 Total Bilirubin 0.5 mg/dl (0.2-1) 07/23/21 18:26 AST 19 U/L (15-37) 07/23/21 18:26 ALT 25 U/L (12-78) 07/23/21 18:26 Alkaline Phosphatase 84 U/L (45-117) 07/23/21 18:26 Total Protein 7.5 gm/dl (6.4-8.2) 07/23/21 18:26 Albumin 4.0 gm/dl (3.4-5.0) 07/23/21 18:26 Globulin 3.5 gm/dl (2.5-4.0) 07/23/21 18:26 Albumin/Globulin Ratio 1.1 (0.9-2) 07/23/21 18:26 Beta-Hydroxybutyric Acd 2.56 mg/dl (0.2-2.81) 07/23/21 18:26 HCG, Qual Negative (Negative) 07/23/21 18:26 COVID-19 Eval Order Covid19 at [facility] 07/23/21 Unknown SARS-CoV-2 (PCR) NEGATIVE (Negative) 07/23/21 Unknown Impressions Femur X-Ray 07/23/21 18:06 XR femur RT 2V routine, XR pelvis 1-2V routine CLINICAL HISTORY: Fall, R leg pain COMPARISON STUDY: None. FINDINGS: Impacted right femoral neck fracture. No dislocation. No fractures within the pelvis, left hip, or distal right femur. The sacrum appears intact. IMPRESSION: Impacted right femoral neck fracture. ACT 112: Negative or not required by law. Electronically signed by: Drew Tian M.D. 07/23/2021 6:49 PM Pelvis X-Ray 07/23/21 18:06 XR femur RT 2V routine, XR pelvis 1-2V routine CLINICAL HISTORY: Fall, R leg pain COMPARISON STUDY: None. FINDINGS: Impacted right femoral neck fracture. No dislocation. No fractures within the pelvis, left hip, or distal right femur. The sacrum appears intact. IMPRESSION: Impacted right femoral neck fracture. ACT 112: Negative or not required by law. Electronically signed by: Drew Tian M.D. 07/23/2021 6:[address] 07/23/21 19:[address] DOSE: 255.15 mGy.cm HISTORY: Fall, R hip pain, fracture TECHNIQUE: Multiaxial CT images of the right hip were performed and reformatted in the sagittal and coronal plane without the use of contrast. A dose lowering technique was utilized adhering to the principles of ALARA. COMPARISON: Right femur 07/23/2021. FINDINGS: There is again noted an impacted right femoral neck fracture with posterior angulation. No dislocation. The visualized pelvic bones are intact. IMPRESSION: Impacted right femoral neck fracture. No dislocation. ACT 112: Negative or not required by law. Electronically signed by: Drew Tian M.D. 07/23/2021 8:01 PM Code Status & VTE Plan Code Status Full code VTE Prophylaxis Plan VTE Prophylaxis will be ordered: Yes PG Care Time/CCT Total # of Minutes Spent Total Time Spent with Patient: Total time spent is greater than 50% in coordination of care (as documented) at patient's floor/unit and/or counseling patient: Coding Level of Care Code 18007 Initial Inpt Care Lvl 3 Diagnoses Closed fracture of neck of right femur S72.001A Hypothyroidism E03.9 Diabetes mellitus type 1, uncontrolled E10.65 Dyslipidemia E78.5 Gastroesophageal reflux disease K21.9
[2021-07-23] MEDS ORDERED: HYDROCODONE/ACETAMOPHEN 5/325MG TAB PO PRN (22:28)
[2021-07-23] MEDS ORDERED: bisacodyL 10 MG SUPP PR PRN (22:28)
[2021-07-23] MEDS ORDERED: ONDANSETRON INJ 2 MG/ML 2 ML VIAL IV PRN (22:28)
[2021-07-23] MEDS ORDERED: MAGNESIUM HYDROXIDE SUSP 30 ML UDC PO PRN (22:28)
[2021-07-23] MEDS ORDERED: ACETAMINOPHEN 325 MG TAB PO PRN (22:28)
[2021-07-23] MEDS ORDERED: NALOXONE HCL 0.4 MG/1 ML VIAL/CARP IV PRN (22:28)
[2021-07-23] MEDS ORDERED: HYDROmorphone INJ 0.5 MG/0.5 ML SYR IV PRN (22:28)
[2021-07-23] MEDS ORDERED: GLUCOSE 10 TABS/TUBE PO PRN (22:45)
[2021-07-23] MEDS ORDERED: CARBOHYDRATES FOR HYPOGLYCEMIA PO PRN (22:45)
[2021-07-23] MEDS ORDERED: GLUCOSE 40% GEL 15 GM TUBE PO PRN (22:45)
[2021-07-23] MEDS ORDERED: DEXTROSE 50% 50 ML SYRINGE IV PRN (22:45)
[2021-07-23] MEDS ORDERED: INSULIN HUMAN LISPRO (humaLOG) 100 UNITS/ML VIAL SC PRN (22:45)
[2021-07-23] MEDS ORDERED: GLUCAGON FOR INJ 1 MG VIAL SQ PRN (22:45)
[2021-07-23] MEDS ORDERED: DOCUSATE SODIUM/SENNA 50/8.6MG TAB PO SCH (23:00)
[2021-07-23] MEDS: LACTATED RINGER'S 1,000 ML IV SCH (23:04)
[2021-07-23] MEDS: SIMVASTATIN 20 MG TAB PO SCH (23:16)
[2021-07-23] MEDS ORDERED: FLUARIX QUADRIVALENT 0.5 ML SYR IM ONE (23:31)
[2021-07-23] MEDS: PATIENT'S HEIGHT AND/OR WEIGHT NEEDED SCH (23:32)
[2021-07-24] MEDS: PATIENT'S HEIGHT AND/OR WEIGHT NEEDED SCH (01:11)
[2021-07-24] MEDS: HYDROCODONE/ACETAMOPHEN 5/325MG TAB PO PRN ×2 (01:28→10:38)
[2021-07-24] MEDS ORDERED: Nursing to Pharmacy Communication SCH (01:30)
[2021-07-24] MEDS: HYDROmorphone INJ 0.5 MG/0.5 ML SYR IV PRN ×3 (03:52→19:23)
[2021-07-24] MEDS: LEVOTHYROXINE SODIUM 75 MCG TABLET PO SCH (05:44)
[2021-07-24] MEDS ORDERED: BUPIVACAINE 0.5 % 5 MG/1 ML PF 10ML VIAL ONE (06:55)
--- NOTE | 2021-07-24 06:58 | XRay Report ---
XR chest Pre-admission PA/Lat HISTORY: 55 years-old Female pre-op preoperative exam. Acute right hip pain status post fall COMPARISON: Radiographs of the right pelvis of same day TECHNIQUE: PA and lateral views of the chest FINDINGS: Cardiomediastinal and hilar silhouettes are within normal limits. No pneumothorax, pleural effusion, airspace consolidation or overt pulmonary edema. No acute fracture. Mild levoscoliosis of the lower t horacic spine. IMPRESSION: No acute process. ACT 112: Negative or not required by law. The above report was generated using voice recognition software. It may contain grammatical, syntax o r spelling errors. Electronically signed by: Romario Scott M.D. 07/24/2021 6:57 AM
[2021-07-24 07:46] LABS: Estimated Average Glucose 197 mg/dl; Hemoglobin A1C 8.5 % (4.5-5.6)
[2021-07-24 07:53] LABS: Basophils # (auto) 0.01 K/uL (0-0.2); Basophils % (auto) 0.2 %; Eosinophils # (auto) 0.09 K/uL (0-0.5); Eosinophils % (auto) 1.8 %; Hematocrit (blood only) 34.1 % (37-47); Hemoglobin 11.4 g/dL (12.0-16.0); Immature Granulocytes # (auto) 0.01 K/uL (0.00-0.02); Immature Granulocytes % (auto) 0.2 %; Lymphocytes % (auto) 28.5 %; Mean Corpuscular Hemoglobin 27.7 pg (25-34); Mean Corpuscular Hgb Conc 33.4 g/dL (32-36); Mean Corpuscular Volume 82.8 fL (80-100); Mean Platelet Volume 10.3 fL (7.4-10.4); Monocytes # (auto) 0.37 K/uL (0.11-0.59); Monocytes % (auto) 7.5 %; Neutrophils # (auto) 3.03 K/uL (1.4-6.5); Neutrophils % (auto) 61.8 %; Platelet Count 146 K/uL (130-400); RDW Coefficient of Variation 13.4 % (11.5-14.5); RDW Standard Deviation 40.7 fL (36.4-46.3); Red Blood Count 4.12 M/uL (4.2-5.4); White Blood Count 4.91 K/uL (4.8-10.8)
--- NOTE | 2021-07-24 08:08 | Anesthesiology Consultation ---
Date of Service July 24, 2021 Assessment & Plan (1) Encounter for pre-operative examination: Chart Review Chart Review: Acceptable Risk for Surgery and Patient NOT seen in Pre Admission Testing covid neg 07/23/21 Consults Requested none History Surgery Operation Date: 07/24/21 09:25 Proposed Procedures p Right Total Hip Arthroplasty - Israel Bella MD Height/Weight Height: 5 ft 6 in Weight: 70.817 kg Allergies Allergy/AdvReac Type Severity Reaction Status Date / Time Penicillins Allergy Mild Rash Verified 07/23/21 20:46 Sulfa (Sulfonamide Allergy Unknown Unknown Verified 07/23/21 20:46 Antibiotics) adhesive AdvReac Mild SOME TAPE Verified 07/23/21 20:46 IRRITATING amoxicillin AdvReac Mild Rash Verified 07/23/21 20:46 Medications Home Medications Medication Instructions Recorded Confirmed Last Taken aspirin 81 mg tablet,delayed 81 mg PO HS 08/28/18 07/23/21 07/22/21 release blood sugar diagnostic (OneTouch #200 ea 12/07/19 11/11/20 Unknown Ultra Blue Test Strip) cholecalciferol (vitamin D3) 50 4,000 units PO QDL cap 12/22/19 07/23/21 07/23/21 mcg (2,000 unit) capsule (Vitamin D3) glucagon HCl 1 mg solution for 1 mg SQ Q20M PRN #1 ea 12/25/19 07/23/21 Unknown injection (Glucagon (HCl) Emergency Kit) levothyroxine 75 mcg tablet 75 mcg PO QAM #90 tab 09/27/20 07/23/21 07/23/21 omeprazole 20 mg tablet,delayed 20 mg PO QAM #90 tab 11/23/20 07/23/21 07/23/21 release OneTouch Ultra2 Meter #1 ea NS 12/14/20 Unknown (blood-glucose meter) OneTouch Ultra Blue Test Strip #200 ea NS 12/21/20 Unknown (blood sugar diagnostic) flash glucose sensor (FreeStyle #6 ea 02/13/21 Unknown Osorio 2 Sensor) insulin lispro 100 unit/mL 0 unit CONTINUOUS SUBCUTANEOUS 07/23/21 07/23/21 Unknown subcutaneous solution (Humalog INFUSION CONTINOUS U-100 Insulin) simvastatin 20 mg tablet 20 mg PO HS 07/23/21 07/23/21 07/22/21 Active Medications Generic Name Dose Route Start Last Admin Trade Name Freq PRN Reason Stop Dose Admin Hydrocodone Bitart/Acetaminophen 2 tab 07/23/21 22:28 07/24/21 10:38 Hydrocodone/Acetamophen 5/325mg Tab PO 08/06/21 22:27 2 tab Q4H PRN Administration SEVERE Pain (7,8,9,10) Dextrose 25 - 50 ml 07/23/21 22:45 07/24/21 11:19 Dextrose 50% 50 Ml Syringe IV 08/22/21 22:44 25 ml UD PRN Administration Hypoglycemia Protocol Protocol Hydromorphone HCl 0.5 mg 07/23/21 22:28 07/24/21 08:44 Hydromorphone Inj 0.5 Mg/0.5 Ml Syr IV 08/06/21 22:27 0.5 mg Q3H PRN Administration Pain (6,7,8,9,10) Lactated Ringer's 1,000 mls @ 100 mls/hr 07/23/21 22:28 07/24/21 08:49 Lr IV 08/22/21 22:27 100 mls/hr .Q10H BARBARA Administration Insulin Human Lispro 1 ea 07/24/21 06:00 07/24/21 05:48 Humalog Insulin Pump N/A 08/23/21 05:59 1 ea Q6 BARBARA Administration Protocol Levothyroxine Sodium 75 mcg 07/24/21 06:30 07/24/21 05:44 Levothyroxine Sodium 75 Mcg Tablet PO 08/23/21 06:29 75 mcg DAILYBB BARBARA Administration Multivitamins 1 tab 07/24/21 09:00 07/24/21 10:54 Multivitamin Tab PO 08/23/21 08:59 Not Given QAM BARBARA Senna/Docusate Sodium 2 tab 07/23/21 23:00 07/23/21 23:16 Docusate Sodium/Senna 50/8.6mg Tab PO 08/22/21 22:59 2 tab HS BARBARA Administration Simvastatin 20 mg 07/23/21 23:00 07/23/21 23:16 Simvastatin 20 Mg Tab PO 08/22/21 22:59 20 mg QPM BARBARA Administration Vitamin D 4,000 units 07/24/21 09:00 07/24/21 10:54 Cholecalciferol 1,000 Units 25 Mcg Tab PO 08/23/21 08:59 Not Given DAILY BARBARA NPO Date Last Intake of Fluids: 07/24/21 Time Last Intake of Fluids: 05:44 Last Intake of Fluids Comment: Small sip with morning med. Past Medical History Medical History Diabetes mellitus type 1 diagnosed at age 26 Diabetic peripheral 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 GERD (gastroesophageal reflux disease) Daniel's thyroiditis Hyperlipidemia Hypothyroidism Left ankle sprain PVCs (premature ventricular contractions) Past Family History Family History Brother Family hx colonic polyps Past Surgical History Surgical History History of bilateral tubal ligation History of section x2 History of dilatation and curettage x2 Social History Smoking Status: Never smoker Hx Alcohol Use: Yes Alcohol type: hard liquor alcohol intake frequency: a few times a week Hx Substance Use: No substance use type: does not use Physical Exam Vital Signs Last Vital Signs Temp 36.8 C 07/24/21 12:03 Pulse 64 07/24/21 12:03 Resp 16 07/24/21 12:03 BP 118/70 07/24/21 12:03 Pulse Ox 95 07/24/21 12:03 Testing Laboratory Results 07/24/21 07:19 07/24/21 07:19 Hemoglobin A1c 8.5 % (4.5-5.6) H 07/23/21 18:26 Blood Type A Positive 07/23/21 21:24 Antibody Screen NEGATIVE 07/23/21 21:24 07/24/21 07/24/21 11:44 05:42 POC Glucose 163 H 231 H Chest X-Ray Date: 07/23/21 XR chest Pre-admission PA/Lat HISTORY: 55 years-old Female pre-op preoperative exam. Acute right hip pain status post fall COMPARISON: Radiographs of the right pelvis of same day TECHNIQUE: PA and lateral views of the chest FINDINGS: Cardiomediastinal and hilar silhouettes are within normal limits. No pneumothorax, pleural effusion, airspace consolidation or overt pulmonary edema. No acute fracture. Mild levoscoliosis of the lower thoracic spine. IMPRESSION: No acute process.
--- NOTE | 2021-07-24 08:18 | Hospitalist Progress Note ---
Date of Service July 24, 2021 Assessment & Plan (1) Closed fracture of neck of right femur: Plan: (1) Closed fracture of neck of right femur: -N.p.o. after midnight --> regular diet s/p surgery -Acetaminophen 650 mg p.o. every 6 hours as needed mild pain or fever -[place] 5/325, 1 p.o. daily 4 hours as needed moderate pain -[place] 5/325, 2 p.o. every 4 hours as needed severe pain -Dilaudid 0.25 mg IV every 3 hours as needed moderate pain -Dilaudid 0.5 mg IV every 3 hours as needed severe pain -Zofran 4 mg IV every 6 hours as needed -Brito catheter -Consult to orthopedic surgery --> Right total hip replacement surgery around noon today (Dr. Israel Bella). DVT ppx with TEDs, SCDs, aspirin. (2) Diabetes mellitus type 1, uncontrolled: -Patient will continue use her own insulin pump and coverage -hypoglycemic this morning, decreased basal insulin per hour ~50%, dextrose given, will continue to monitor -following with pharmacy as well (3) Dyslipidemia: -Continue simvastatin 20 mg at bedtime (4) Gastroesophageal reflux disease: -Continue omeprazole/pantoprazole (5) Hypothyroidism: -Continue levothyroxine Admission and Anticipated Discharge Date Admission Date: July 23, 2021 Supervising Physician Co-Signing Physician Notes Attending attestation Pt seen and examined in concert with Dr. Ray. In agreement with the documented findings as noted in the resident documentation with any exceptions or additions as noted here. Pain well controlled on present regimen. No symptoms of hypoglycemia but in room glucose in the 50s, so rec'd 25mL of D50 and will monitor closely. On examination, S1/S2 nl RRR no MCG. CTAB. Abd NT/ND BS+ve Left hip fracture - ortho consult - pending surgery today DMI on insulin pump - decrease insulin by 50% while preoperative for coverage with ISS and pharmacy consultation for pump management following. Else see resident documentation as noted. Subjective She is expected to go to surgery later this afternoon for her right femoral neck fracture. Has been NPO for surgery. In room, her glucose monitor read in the 50s but asymptomatic. No complaints other than right hip pain. Review of Systems Review of Systems: All systems reviewed & are unremarkable except as noted in HPI & below Constitutional: no fever, no chills and no fatigue Respiratory: no cough and no dyspnea Cardiovascular: no chest pain and no palpitations Gastrointestinal: no abdominal pain, no heartburn, no nausea and no vomiting Physical Exam Physical Exam: Constitutional: awake, alert and oriented 3, well developed and well nourished, normocephalic and atraumatic, mild acute distress secondary to right hip pain HEENT--PERRL, EOMI, mucous membranes and oropharynx normal. Neck--supple. No JVD. No bruits. Thyroid normal, trachea midline, no a denopathy. Heart--normal S1 and S2. No murmurs, rubs or gallops. Lungs--clear bilaterally, no respiratory distress, no accessory muscle use. Abdomen--normal bowel sounds and soft. Nontender. Nondistended, no hernias or masses, no organomegaly. Extremities--no cyanosis or clubbing. No edema. Dermatologic--normal skin turgor, normal color, no abnormal lymph nodes, no rash. Neurologic--cranial nerves II through XII grossly intact. Psychiatric--normal affect. Results & Data Results & Data ([facility]) Vital Signs (Past 12 Hours) Vital Signs Temp Pulse Pulse Resp BP BP Pulse Ox 07/24/21 08:10 36.5 C 64 16 136/79 99 07/23/21 22:30 36.7 C 67 65 16 147/83 H 95 Resident Activity Tracking Resident Involvement: Resident Care Provided Care Provided: Adult Hospital Medicine
[2021-07-24 08:19] LABS: Albumin Level 2.8 gm/dl (3.4-5.0); BUN Creatinine Ratio 19.4 (10-20); Calcium 8.8 mg/dl (8.5-10.1); Est GFR (African American) 114.6 ml/min; Est GFR (Non-African American) 98.9 ml/min; Magnesium 2.2 mg/dl (1.8-2.4); Potassium 4.2 mmol/L (3.5-5.1)
[2021-07-24 08:23] LABS: Bilirubin,Total 0.7 mg/dl (0.2-1); Globulin 2.9 gm/dl (2.5-4.0); Total Protein 5.7 gm/dl (6.4-8.2)
[2021-07-24] MEDS: LACTATED RINGER'S 1,000 ML IV SCH (08:49)
[2021-07-24] MEDS: MULTIVITAMIN TAB PO SCH (10:54)
[2021-07-24] MEDS: CHOLECALCIFEROL 1,000 UNITS 25 MCG TAB PO SCH (10:54)
[2021-07-24] MEDS ORDERED: MIDAZOLAM HCL 1 MG/ML 2ML VIAL ONE ×2 (11:31→11:32)
[2021-07-24] MEDS ORDERED: fentaNYL citrate 100 MCG/2 ML VIAL ONE (11:31)
[2021-07-24] MEDS ORDERED: EPINEPHrine INJ 1 MG/ML AMP ONE (12:09)
[2021-07-24] MEDS ORDERED: BUPIVACAINE 0.5 % 5 MG/1 ML MPF 30ML VIAL ONE (12:10)
[2021-07-24] MEDS ORDERED: TRANEXAMIC ACID / 0.7% NACL 1000MG/100ML BAG IV ONE (12:44)
[2021-07-24] MEDS ORDERED: PROPOFOL IV EMULSION 10 MG/ML 20 ML VIAL IV ONE ×2 (13:15→14:29)
[2021-07-24] MEDS ORDERED: LIDOCAINE 2% 2 ML VIAL/AMP(20MG/ML) INFIL ONE (13:15)
[2021-07-24] MEDS ORDERED: ePHEDrine sulfate 50 MG/ML AMP ONE (13:15)
[2021-07-24] MEDS ORDERED: ONDANSETRON INJ 2 MG/ML 2 ML VIAL ONE (13:15)
[2021-07-24] MEDS ORDERED: fentaNYL citrate 100 MCG/2 ML VIAL IV PRN (13:39)
[2021-07-24] MEDS ORDERED: ATROPINE SULFATE 0.1 MG/ML 10ML SYR IV PRN (13:39)
[2021-07-24] MEDS ORDERED: ONDANSETRON INJ 2 MG/ML 2 ML VIAL IV PRN ×2 (13:39→16:29)
[2021-07-24] MEDS ORDERED: ePHEDrine sulfate 50 MG/ML AMP IV PRN (13:39)
[2021-07-24] MEDS ORDERED: ceFAZolin 2000MG 2,000 MG/15 ML SYR IV ONE (13:47)
--- NOTE | 2021-07-24 15:16 | Operative Report ---
Post Operative Report Pre & Post Diagnosis Operation Date: 07/24/21 09:25 Pre-Op Diagnosis: Closed fracture of neck of right femur-displaced Post-Op Diagnosis: Closed fracture of neck of right femur-displaced I identified the patient and participated in the time-out.: Yes Procedure Operation Date: 07/24/21 09:25 Actual Procedures p Right Total Hip Arthroplasty(Right) - Israel Bella MD Surgeon Israel Bella MD Stretcher Leveler Operator Helper Rivera Inman PA-C Estimated Blood Loss 300 Findings Consistent with Post-Op Diagnosis Specimens Right femoral head sent for pathology Anesthesia Type Spinal MAC Complications none Disposition Accompanied Patient To Recovery: Yes Indications Patient is a 55-year-old fairly poorly controlled diabetic 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 She was stepping over something and tripped and fell on her right side. She had acute onset of pain and could not ambulate. She brought the emergency room where x-rays revealed evidence of a femoral neck fracture. We did get a CT scan which showed a significantly displaced femoral neck fracture. Patient is indicated for total hip replacement based on the displacement and her young age. She had no pre-existing hip pathology. Description of Procedure Operative implants consisted of: 1. Biomet G7 size 52 mm acetabular shell. 2. 6.5 cancellous acetabular screws 135 mm in length 125 mm length. 3. [place] hole shearing machine tender. 4. Highly cross-linked polyethylene liner with a 52 mm outer diameter 36 mm diameter. 5. Minford Corail size 11 short neck 125degree angle femoral stem. 6. +1.5/36 mm ceramic articular ball. The patient was taken to the operating, identified, placed on the operating table supine position. All contractors were properly padded. IV antibiotics tried by anesthesia team. A spinal anesthetic was implemented by by the anesthesia team. The patient was then placed in the left lateral cubitus position. Axillary roll was placed. A Stulberg hip positioner was used for positioning. Right hip was then first scrubbed with Hibiclens, and then prepped with ChloraPrep and draped in usual sterile fashion. A posterior lateral proximal right hip was then performed to a curvilinear incision centered over the greater trochanter. Sharp dissection was carried through subcutaneous tissue down to level the IT band gluteal fascia the IT band gluteal fascia incised longitudinally in line with skin incision. The underlying greater bursa was excised. The piriformis and external rotators along with the hip joint capsule were then released from the posterior aspect of hip joint as a single layer. Hip was internally rotated. A femoral neck osteotomy cut was made just below the femoral neck fracture about 12 mm above the lesser trochanter. The femur was retracted anteriorly. The femoral head was removed. Was fairly comminuted around the neck area and I removed all the small bone fragments. The acetabulum was exposed. The labrum was excised. Pulmonary fat was excised. Sequential reaming the acetabular was then performed beginning with a size 43 and progressing up to 51. I reamed a little bit with a 52 reamer and then placed a 52 mm acetabular cup cup in about 20 to 25 degrees of anteversion and 40 degrees lateral opening. It was fixed with two 6.5 cancellous acetabular screws. Trial liner was placed. Attention drawn the femur. The proximal femur was entered with a cookie-cutter followed by canal finder. I then broached begin the size 8 and progressing up to 11. Got excellent fit at 11. I could not quite get this down to the calcar. I then trialed with different neck lengths and heads. I elect to use the short neck and a +5 head initially. This provided excellent soft tissue tension, appropriate stability and equal leg lengths. Attention drawn to place these permanent components. All trial components were removed. An apex hole shearing machine tender was placed. I cross- linked polyethylene liner was placed. A DePuy karate size 11 short neck, 125 degree angle stem was then placed. I could not quite get this down even to the level we got the broach. I was afraid further advancement would right the femur so we left a little bit proud. I elect to place a 1.5 neck length due to the implant being just slightly proud. We placed the a 1.5/36 mm ceramic articular ball and relocated the hip. The hip was fully stable in full extension and external rotation flexion to 9 degrees internal rotation over 50 degrees. Attention drawn toward closing. Wounds irrigated copious also pulsatile lavage solution. We did inject locally with 60 cc of half percent Marcaine with epinephrine. The patient did receive 1 g tranexamic acid before the procedure started. The wounds once again irrigated. The posterior capsule was then repaired through drills in the posterior trochanter with #2 Tycron suture. The IT band gluteal fascia then closed #1 PDS suture running fashion for subcutaneous tissue then closed with 2 layers the deep layer #2 Vicryl suture in a buried interrupted fashion followed by 2-0 Dexon suture in a buried interrupted fashion. Skin was closed with skin shan. I elect to place a Prevena VAC dressing due to a fairly thick soft tissue envelope. The patient then taken off the operating room table and transferred to the recovery room in stable condition. Patient tolerated pro cedure well and there were no complications. All needle sponge counts were correct at the end the operation. Rivera Inman, my physician pediatric medical assistant, was present for the entire procedure. His assistance was required for proper patient positioning, prepping and draping, surgical exposure, proper retraction, placement of the implants, Jaime the wound, and placement of the sterile bandage. I attest to the content of the Intraoperative Record and any orders documented therein. Any exceptions are noted below.
--- NOTE | 2021-07-24 15:23 | XRay Report ---
XR hip 1V RT w pelvis HISTORY: 55 years-old Female IN PACU - A/P PELVIS and LATERAL HIP right hip total joint arthroplast y COMPARISON: Right femur radiographs 07/23/2021 TECHNIQUE: AP view of the pelvis with crosstable lateral view of the right hip FINDINGS: Right hip total joint arthroplasty demonstrates satisfactory alignment. Overlying skin shan are pr esent along with expected postoperative soft tissue swelling with deep tissue air. No unexpected opaq ue foreign bodies. No acute fracture. Mild osteoarthritis of the left hip. IMPRESSION: Right hip total joint arthroplasty with expected postoperative changes. ACT 112: Negative or not required by law. The above report was generated using voice recognition software. It may contain grammatical, syntax o r spelling errors. Electronically signed by: Romario Scott M.D. 07/24/2021 3:22 PM
--- NOTE | 2021-07-24 15:44 | Anesthesiology Progress Note ---
Date of Service July 24, 2021 Anesthesia Post Procedure Vital Signs Vital Signs: Temp Pulse Pulse Pulse Resp BP BP 07/24/21 15:25 78 22 109/60 07/24/21 15:15 70 12 108/68 07/24/21 15:05 81 22 116/65 07/24/21 14:57 36.7 C 81 16 88/52 L 07/24/21 12:03 36.8 C 64 16 118/70 07/24/21 08:10 36.5 C 64 16 136/79 07/23/21 22:30 36.7 C 67 65 16 07/23/21 19:08 18 07/23/21 19:06 68 18 07/23/21 17:15 37.1 C 69 18 164/79 H BP Pulse Ox 07/24/21 15:25 98 07/24/21 15:15 100 07/24/21 15:05 100 07/24/21 14:57 100 07/24/21 12:03 95 07/24/21 08:10 99 07/23/21 22:30 147/83 H 95 07/23/21 19:08 96 07/23/21 19:06 97 07/23/21 17:15 99 Pain Intensity Right Hip: Pain Intensity: 0 Transfer of Care Handoff Completed per policy Notes Mental Status: alert / awake / arousable and participated in evaluation Patient Amnestic to Procedure: Yes Nausea / Vomiting: adequately controlled Pain: adequately controlled Airway Patency, RR, SpO2: stable & adequate BP & HR: stable & adequate Hydration State: stable & adequate Neuraxial Anesthesia: was administered and sensory block is resolving Anesthetic Complications: no major complications apparent
[2021-07-24] MEDS ORDERED: ALUMINUM/MAGNESIUM SUSP 30 ML UDC PO PRN (16:29)
[2021-07-24] MEDS ORDERED: METOCLOPRAMIDE HCL INJ 5 MG/ML 2 ML VIAL IV PRN (16:29)
[2021-07-24] MEDS ORDERED: traMADol HCL 50 MG TABLET PO PRN (16:29)
[2021-07-24] MEDS ORDERED: NALOXONE HCL 0.4 MG/1 ML VIAL/CARP IV PRN (16:29)
[2021-07-24] MEDS ORDERED: MAGNESIUM HYDROXIDE SUSP 30 ML UDC PO PRN (16:29)
[2021-07-24] MEDS ORDERED: bisacodyL 10 MG SUPP PR PRN (16:29)
[2021-07-24] MEDS ORDERED: diphenhydrAMINE Capsule 25 MG CAP PO PRN (16:29)
[2021-07-24] MEDS ORDERED: PHARMACY GLYCEMIC MGMT CONSULT PRN (16:29)
[2021-07-24] MEDS: SODIUM CHLORIDE 0.9% 1000ML 1,000 ML IV SCH (16:50)
[2021-07-24] MEDS: KETOROLAC 30 MG/ML VIAL IV SCH (17:19)
--- NOTE | 2021-07-24 17:22 | Pharmacy Report ---
PHA: Glycemic Control AP - Date of Service July 24, 2021 - Assessment & Plan The patient is currently receiving insulin per her insulin pump using her home regimen. BSGs ranging 150-300 mg/dl over the past 24hrs. BSGs have been reasonably in range today (BSG 153-231 today) since admission with patient using her home insulin pump regimen. No changes needed at this time. Pharmacy will continue to monitor patient daily and write orders per [facility] inpatient glycemic control protocol. Thanks. * Please note that the plan above was derived based on current level of insulin resistance and hospital stress. These recommendations are appropriate for inpatient admission only. Plan of care upon discharge will need to be reassessed to avoid potential outpatient hypo/hyperglycemia.
[2021-07-24] MEDS: FERROUS GLUCONATE 324 MG TAB PO SCH (18:40)
[2021-07-24] MEDS ORDERED: TRANEXAMIC ACID / 0.7% NACL 1,000 MG/100 ML BAG IV SCH (21:00)
[2021-07-24] MEDS: DOCUSATE SODIUM 100 MG CAP PO SCH (21:20)
[2021-07-24] MEDS: SIMVASTATIN 20 MG TAB PO SCH (21:20)
[2021-07-24] MEDS: ASPIRIN 81 MG ECTAB PO SCH (21:20)
[2021-07-24] MEDS: SENNA 8.6 MG TAB PO SCH (21:20)
[2021-07-24] MEDS: ceFAZolin 1000MG 1,000 MG/7.5 ML SYR IV SCH (21:21)
[2021-07-24] MEDS: ACETAMINOPHEN 500 MG TAB PO SCH (23:31)
[2021-07-25] MEDS: KETOROLAC 30 MG/ML VIAL IV SCH ×5 (00:45→23:40)
[2021-07-25] MEDS: SODIUM CHLORIDE 0.9% 1000ML 1,000 ML IV SCH (01:56)
[2021-07-25] MEDS: ceFAZolin 1000MG 1,000 MG/7.5 ML SYR IV SCH (05:05)
[2021-07-25] MEDS: ACETAMINOPHEN 500 MG TAB PO SCH ×3 (06:18→21:15)
[2021-07-25] MEDS: LEVOTHYROXINE SODIUM 75 MCG TABLET PO SCH (06:18)
[2021-07-25 07:06] LABS: Basophils # (auto) 0.01 K/uL (0-0.2); Basophils % (auto) 0.2 %; Eosinophils # (auto) 0.13 K/uL (0-0.5); Eosinophils % (auto) 2.2 %; Hematocrit (blood only) 25.3 % (37-47); Hemoglobin 8.3 g/dL (12.0-16.0); Immature Granulocytes # (auto) 0.01 K/uL (0.00-0.02); Immature Granulocytes % (auto) 0.2 %; Lymphocytes # (auto) 1.11 K/uL (1.2-3.4); Mean Corpuscular Hgb Conc 32.8 g/dL (32-36); Mean Corpuscular Volume 82.4 fL (80-100); Mean Platelet Volume 10.3 fL (7.4-10.4); Monocytes # (auto) 0.37 K/uL (0.11-0.59); Monocytes % (auto) 6.3 %; Neutrophils # (auto) 4.21 K/uL (1.4-6.5); Neutrophils % (auto) 72.1 %; Platelet Count 121 K/uL (130-400); RDW Coefficient of Variation 13.4 % (11.5-14.5); RDW Standard Deviation 40.8 fL (36.4-46.3); Red Blood Count 3.07 M/uL (4.2-5.4); White Blood Count 5.84 K/uL (4.8-10.8)
[2021-07-25 07:26] LABS: Albumin Level 2.3 gm/dl (3.4-5.0); BUN Creatinine Ratio 19.1 (10-20); Calcium 8.1 mg/dl (8.5-10.1); Creatinine Clr Calc Pharmacy 92.3 ml/min; Est GFR (African American) 116.9 ml/min; Est GFR (Non-African American) 100.9 ml/min; Magnesium 1.8 mg/dl (1.8-2.4); Potassium 4.1 mmol/L (3.5-5.1)
[2021-07-25 07:29] LABS: Albumin Globulin Ratio 0.8 (0.9-2); Bilirubin,Total 0.5 mg/dl (0.2-1); Globulin 2.8 gm/dl (2.5-4.0); Total Protein 5.1 gm/dl (6.4-8.2)
[2021-07-25] MEDS ORDERED: MULTIVITAMIN TAB PO SCH (09:00)
[2021-07-25] MEDS: FERROUS GLUCONATE 324 MG TAB PO SCH ×2 (09:18→16:26)
[2021-07-25] MEDS: ASPIRIN 81 MG ECTAB PO SCH ×2 (09:18→20:23)
[2021-07-25] MEDS: CHOLECALCIFEROL 1,000 UNITS 25 MCG TAB PO SCH (09:18)
[2021-07-25] MEDS: DOCUSATE SODIUM 100 MG CAP PO SCH ×2 (09:18→20:24)
[2021-07-25] MEDS: MULTIVITAMIN TAB PO SCH (09:18)
--- NOTE | 2021-07-25 11:20 | Progress Notes ---
DATE OF SERVICE: 07/25/2021 SUBJECTIVE: A 55-year-old female now postoperative day 1 from right uncemented total hip arthroplast y due to a displaced femoral neck fracture. She is doing okay. Pain is better and different than pr eviously. Had a reasonable night. Denies any chest pain or shortness of breath. Not feeling dizzy or lightheaded. OBJECTIVE: VITAL SIGNS: Temperature is 36.8. Vital signs are stable. PHYSICAL EXAMINATION: GENERAL: Shows a pleasant middle-aged female. She is sitting up in her bedside chair, looks pretty comfortable. LUNGS: Clear to auscultation. HEART: Regular rate and rhythm. ABDOMEN: Soft, nontender, nondistended. EXTREMITIES: Grossly neurovascularly intact except as follows: Examination of the right hip reveals the dressing to be clean, dry and intact. Leg lengths are equal. Thigh is soft and supple. She is neurologically intact. She can dorsiflex and plantarflex her foot appropriately. LABORATORY DATA: Hemoglobin 8.3. Hematocrit 25.3. Blood glucoses are elevated at 190. ASSESSMENT: A 55-year-old female, poorly controlled diabetic, postoperative day 1 from a right total hip replacement done for a fracture. She is doing pretty well. Pain seems to be controlled. She i s anemic, but without symptoms. PLAN: 1. DVT prophylaxis includes thigh-high TEDs, SCDs, and aspirin twice a day. 2. PT/OT. She can weightbear as tolerated in the right lower extremity. She does need to obey hip precautions. 3. Pain control, doing okay with current pain regimen. 4. Anemia. Currently asymptomatic. Will continue iron supplementation. 5. Disposition: The plan will be to discharge her home with home health. I think she will be ready to go probably tomorrow. I need to see her back in 2-3 weeks out from surgery date. Any orthopedic questions can be directed to me at [phone]. Job ID: [id number]
--- NOTE | 2021-07-25 11:33 | Hospitalist Progress Note ---
Date of Service July 25, 2021 Assessment & Plan (1) Closed fracture of neck of right femur: Plan: (1) Closed fracture of neck of right femur: -right total hip replacement went well, no signs of infection. Per ortho: -DVT prophylaxis includes thigh-high TEDs, SCDs, and aspirin twice a day. -PT/OT. She can weightbear as tolerated in the right lower extremity. She does need to obey hip precautions. -Pain control, doing okay with current pain regimen. (2) Diabetes mellitus type 1, uncontrolled: -Patient will continue use her own insulin pump and coverage, glucose 199 this morning, stable -Following with pharmacy, will continue to monitor (3) Dyslipidemia: -Continue simvastatin 20 mg at bedtime (4) Gastroesophageal reflux disease: -Continue omeprazole/pantoprazole (5) Hypothyroidism: -Continue levothyroxine (6) Anemia -Likely secondary to surgery -Currently asymptomatic. Will continue iron supplementation. Admission and Anticipated Discharge Date Admission Date: July 23, 2021 Supervising Physician Co-Signing Physician Notes Attending attestation Pt seen and examined in concert with Dr. Ray. In agreement with the documented findings as noted in the resident documentation with any exceptions or additions as noted here. Pain well controlled on present regimen. Participating in PT with enthusiasm On examination, S1/S2 nl RRR no MCG. CTAB. Abd NT/ND BS+ve Left hip fracture with concern for osteoporotic fx - ortho consult - pain control, PT, calcium supplementation, DEXA as outpatient DMI on insulin pump - glycemic consult - insulin pump adjustment, ISS Else see resident documentation as noted. Subjective In good spirits after surgery yesterday. Says she is in less pain than before surgery. Has been ambulating with walker to bathroom without complications. Review of Systems Constitutional: no fever, no chills and no fatigue Respiratory: no cough and no dyspnea Cardiovascular: no chest pain and no palpitations Gastrointestinal: no abdominal pain, no heartburn, no nausea and no vomiting Physical Exam Physical Exam: Constitutional: awake, alert and oriented 3, well developed and well nourished, normocephalic and atraumatic, mild acute distress secondary to right hip pain HEENT--PERRL, EOMI, mucous membranes and oropharynx normal. Neck--supple. No JVD. No bruits. Thyroid normal, trachea midline, no adenopathy. Heart--normal S1 and S2. No murmurs, rubs or gallops. Lungs--clear bilaterally, no respiratory distress, no accessory muscle use. Abdomen--normal bowel sounds and soft. Nontender. Nondistended, no hernias or masses, no organomegaly. Extremities--no cyanosis or clubbing. No edema. Dermatologic--normal skin turgor, normal color, no abnormal lymph nodes, no rash. Neurologic--cranial nerves II through XII grossly intact. RLE neurovascularly intact. Psychiatric--normal affect. Skin: Bandages present. No signs of infection over surgical site. Results & Data Results & Data ([facility]) Vital Signs (Past 12 Hours) Vital Signs Temp Pulse Pulse Resp BP Pulse Ox Pulse Ox 07/25/21 07:43 36.8 C 78 16 99/65 L 98 07/25/21 03:46 36.9 C 73 16 99/65 L 98 07/25/21 02:00 98 Resident Activity Tracking Resident Involvement: Resident Care Provided Care Provided: Adult Hospital Medicine
--- NOTE | 2021-07-25 12:13 | Pharmacy Report ---
Pharmacy Glycemic Short Note 2 - Date of Service July 25, 2021 - Glycemic Short BSG Results (Last 24 hours): 07/24/21 07/24/21 07/24/21 11:44 12:39 14:05 Glucose POC Glucose 163 H 153 H 216 H 07/24/21 07/24/21 07/24/21 15:00 16:49 19:56 Glucose POC Glucose 259 H 272 H 340 H* 07/24/21 07/24/21 07/25/21 19:58 23:38 05:30 Glucose 199 H POC Glucose 292 H 285 H 07/25/21 07/25/21 08:17 11:55 Glucose POC Glucose 191 H 270 H OUTPATIENT ANTIDIABETIC REGIMEN: * Humalog pump (~50 units/day) ASSESSMENT: * Ms Cruz is a 55 y/o F with a PMH of T1DM managed via insulin pump. * Per records, patient had hypoglycemic event yesterday morning and basal rate decreased by 50% until 1800 yesterday. * BSGs yesterday were [phone] and this morning's fasting was 199 mg/dL. * Elevated BSGs yesterday likely due to surgery and basal rate decreased by 50%. * Since patient will be discharged tomorrow, will not suggest removing insulin pump. This would probably lead to more hyperglycemia than prevent it. life skills educator saw patient and increased basal rates by 10%. * Continue to monitor. PLAN FOR INPATIENT GLYCEMIC CONTROL: Pt is to manage BSGs with insulin pump per outpatient settings. * RN will have patient read and sign agreement CF 006 Insulin Pump Therapy Patient Agreement. * RN will provide and explain form [id number] Flowsheet for Patient * Patient will document their insulin dose given on NS-[id number] which is kept at the bedside, available to caregivers upon request, and which becomes part of the permanent medical record. If at any time the patients condition evidences that he/she is not able to manage the insulin pump (i.e. frequent hypo/hyperglycemia) Pharmacy will assume glycemic control by discontinuing the pump & managing with SQ basal bolus insulin regimen for the interim. PLAN FOR DISCHARGE: * Continue to follow [facility] [place] to optimize diabetes regimen.
[2021-07-25] MEDS: SENNA 8.6 MG TAB PO SCH (20:23)
[2021-07-25] MEDS: SIMVASTATIN 20 MG TAB PO SCH (20:23)
[2021-07-26] MEDS: KETOROLAC 30 MG/ML VIAL IV SCH ×2 (05:24→12:48)
[2021-07-26] MEDS: LEVOTHYROXINE SODIUM 75 MCG TABLET PO SCH (05:24)
[2021-07-26] MEDS: ACETAMINOPHEN 500 MG TAB PO SCH (05:25)
[2021-07-26 06:24] LABS: Basophils # (auto) 0.03 K/uL (0-0.2); Basophils % (auto) 0.5 %; Eosinophils # (auto) 0.18 K/uL (0-0.5); Eosinophils % (auto) 2.8 %; Hematocrit (blood only) 24.5 % (37-47); Hemoglobin 8.1 g/dL (12.0-16.0); Immature Granulocytes # (auto) 0.01 K/uL (0.00-0.02); Immature Granulocytes % (auto) 0.2 %; Lymphocytes # (auto) 1.15 K/uL (1.2-3.4); Mean Corpuscular Hgb Conc 33.1 g/dL (32-36); Mean Corpuscular Volume 81.7 fL (80-100); Mean Platelet Volume 10.8 fL (7.4-10.4); Monocytes # (auto) 0.49 K/uL (0.11-0.59); Monocytes % (auto) 7.7 %; Neutrophils # (auto) 4.52 K/uL (1.4-6.5); Neutrophils % (auto) 70.8 %; Platelet Count 134 K/uL (130-400); RDW Coefficient of Variation 13.4 % (11.5-14.5); RDW Standard Deviation 40.7 fL (36.4-46.3); White Blood Count 6.38 K/uL (4.8-10.8)
[2021-07-26 06:50] LABS: Albumin Level 2.3 gm/dl (3.4-5.0); BUN Creatinine Ratio 25.1 (10-20); Calcium 8.1 mg/dl (8.5-10.1); Creatinine Clr Calc Pharmacy 117.1 ml/min; Est GFR (African American) 126.4 ml/min; Est GFR (Non-African American) 109.1 ml/min; Magnesium 1.9 mg/dl (1.8-2.4)
[2021-07-26 06:57] LABS: Albumin Globulin Ratio 0.7 (0.9-2); Bilirubin,Total 0.4 mg/dl (0.2-1); Globulin 3.2 gm/dl (2.5-4.0); Total Protein 5.5 gm/dl (6.4-8.2)
[2021-07-26] MEDS: MULTIVITAMIN TAB PO SCH (09:11)
[2021-07-26] MEDS: DOCUSATE SODIUM 100 MG CAP PO SCH (09:12)
[2021-07-26] MEDS: FERROUS GLUCONATE 324 MG TAB PO SCH (09:13)
[2021-07-26] MEDS: ASPIRIN 81 MG ECTAB PO SCH (09:13)
[2021-07-26] MEDS: CHOLECALCIFEROL 1,000 UNITS 25 MCG TAB PO SCH (09:13)
--- NOTE | 2021-07-26 11:37 | Progress Notes ---
DATE OF SERVICE: 07/26/2021 SUBJECTIVE: A 55-year-old female now postop day 2 from right total hip replacement done for a displac ed femoral neck fracture. She says that she is doing a lot better today. Pain is very manageable. No chest pain or shortness of breath. Not feeling dizzy or lightheaded. OBJECTIVE: VITAL SIGNS: Temperature 37.3. Vital signs are stable. PHYSICAL EXAMINATION: GENERAL: Shows a pleasant middle-aged female. She was walking in the hallway with the therapist ranjan huber a walker when I visited her. EXTREMITIES: Examination of the right hip reveals a Prevena VAC dressing to be intact. Very mild th igh swelling. Leg lengths appear pretty equal. She can dorsiflex and plantarflex her foot appropria tely. She is neurologically intact. LABORATORY DATA: Hemoglobin 8.1, hematocrit 24.5. Electrolytes are stable. ASSESSMENT: A 55-year-old female, fairly poorly controlled diabetic, now postoperative day 2 from a right total hip replacement done for a fracture. She is doing quite well, feeling much more optimist ic and the pain is better controlled and getting around pretty well today. PLAN: 1. DVT prophylaxis includes thigh-high TEDs, SCDs, and baby aspirin twice a day for 6 weeks. 2. PT/OT. She can weight bear as tolerated. Does need to obey hip precautions. 3. Pain control, seems to be doing pretty well with current pain regimen. 4. Medical management as per the medicine service. 5. Disposition: She is orthopedically okay for discharge. She will need home health. Routine woun d care with a Prevena wound VAC. I need to see her back 2 weeks out from surgery date. Any orthoped ic questions can be directed to me at [phone]. Job ID: [id number]
--- NOTE | 2021-07-26 12:17 | Discharge Summary ---
Date of Service July 26, 2021 Admission HPI Per Admitting Provider The patient is a 55-year-old female with a past medical history including diabetes mellitus, hypothyroidism, GERD, and hyperlipidemia who presents to the emergency department after acute development of right hip pain status post mechanical fall. X-ray in the emergency department revealed a closed impacted right femoral neck fracture. Dr. Salcido orthopedic surgery was consulted by the ED, and asked that the patient be admitted to medical service, and that a CT of the hip be performed Principal Diagnosis s/p right hip replacement Discharge Exam Constitutional: awake, alert and oriented 3, well developed and well nourished, normocephalic and atraumatic, mild acute distress secondary to right hip pain HEENT--PERRL, EOMI, mucous membranes and oropharynx normal. Neck--supple. No JVD. No bruits. Thyroid normal, trachea midline, no adenopathy. Heart--normal S1 and S2. No murmurs, rubs or gallops. Lungs--clear bilaterally, no respiratory distress, no accessory muscle use. Abdomen--normal bowel sounds and soft. Nontender. Nondistended, no hernias or masses, no organomegaly. Extremities--no cyanosis or clubbing. No edema. Dermatologic--normal skin turgor, normal color, no abnormal lymph nodes, no rash. Neurologic--cranial nerves II through XII grossly intact. RLE neurovascularly intact. Psychiatric--normal affect. Skin: Bandages present. No signs of infection over surgical site. Discharge Data Allergies Allergy/AdvReac Type Severity Reaction Status Date / Time Penicillins Allergy Mild Rash Verified 07/23/21 20:46 Sulfa (Sulfonamide Allergy Unknown Unknown Verified 07/23/21 20:46 Antibiotics) adhesive AdvReac Mild SOME TAPE Verified 07/23/21 20:46 IRRITATING amoxicillin AdvReac Mild Rash Verified 07/23/21 20:46 Consultations 07/23/21 19:35 ED Decision to Admit Stat 07/23/21 22:28 Consult Orthopedic Surgery Routine Procedures Performed Operation Date: 07/24/21 09:25 Actual Procedures p Right Total Hip Arthroplasty(Right) - Israel Bella MD Ordered Studies 07/23/21 19:32 CT hip RT wo con Stat Hospital Course (1) Closed fracture of neck of right femur: (1) Closed fracture of neck of right femur: -Right total hip replacement went well, no signs of infection. Per ortho: -DVT prophylaxis included thigh-high TEDs, SCDs, and aspirin twice a day. -PT/OT. She can weightbear as tolerated in the right lower extremity. She does need to obey hip precautions. -Pain control, doing okay with current pain regimen. -Will continue at home PT after discharge. -Should also f/u with PCP and discuss bone health. Check vit D levels and consider DEXA scan. (2) Diabetes mellitus type 1, uncontrolled: -Patient used her own insulin pump and coverage, followed with pharmacy (3) Dyslipidemia: -Continue simvastatin 20 mg at bedtime (4) Gastroesophageal reflux disease: -Continue omeprazole/pantoprazole (5) Hypothyroidism: -Continue levothyroxine (6) Anemia -Likely secondary to surgery -Currently asymptomatic. Continue iron supplementation. Total Time Total Time Spent Total Time Spent (In Minutes): 30 Discharge Plan Discharge Items Patient Disposition: Home - Home Health Services Reason For Visit: RIGHT FEMUR FRACTURE Discharge Diagnosis: Right hip replacement for fracture Condition on Discharge: Good Activity: Per Instructions section Activity Comment: Weightbear as tolerated obeying hip precautions at all times Weightbearing: Full weightbearing Weightbearing Comment: Obey/Follow hip precautions at all times Non-emergency contact: Surgeon Call non-emergency contact if: you have any medication questions Follow-up/Referrals: Elisa Call MD [Primary Care Provider] - 08/03/21 11:20 am Israel Bella MD [Physician] - 08/10/21 11:20 am (Orthopedic follow-up 2-3 weeks from surgery) Diet: Carb Consistent or DM2 Addtl Attending Provider Instructions: ACTIVITY RECOMMENDATIONS: Physical Therapy: * Aggressive physical therapy is not usually needed. You will learn to take care of yourself safely and walk. * Follow the "Hip Precautions Instructions." * In some cases, the professor of social work at the hospital will arrange to have a therapist come to your house for the first couple of weeks to help you learn these skills. * You need to practice on your own or with the help of a family member as needed. * When you learn these skills, most of the therapy can be done on your own. Home Exercise: * You were shown a series of exercises in the hospital. Do these exercises three to four times each day including the exercises you were shown in physical therapy. Walking: * Get up and walk several times each day. For the first four weeks, try not to stand or walk for more than one hour at a time. If you do stand or walk for more than one hour, you will not hurt anything, but your leg will likely swell. * As you feel comfortable, you may change from the walker or crutches to a cane and then to independent walking. MEDICATIONS: New Medicine: * You will likely be taking one or more of these medicines: 1. Tramadol - Take, as directed, when you need it, every six hours to control your pain. 2. Iron Sulfate - Take two times each day for the month after surgery to help you replace the blood lost during surgery. 3. Aspirin - Thins your blood to lessen the chance of forming a blood clot. * The most common side effects of pain medicine and iron are nausea and constipation. If nausea or constipation is too much of a problem or if you have any questions about your new medicines or doses, call [facility] at . We will try to help you manage these issues. "VERY IMPORTANT TO READ AND REVIEW" Pain: * The immediate post-operative period after hip replacement surgery is often quite painful. * You are given a prescription for pain medicine. You should take it, as directed, when you need it, especially before physical therapy and before going to bed. Pain that interferes with sleep is very common and can last several months. * You will likely need pain medicine for the first two to four weeks. It will not stop all of the pain. The pain will lessen and as you feel better, you may change to milder pain medicine such as Tylenol. * The most common side effects of pain medicine are nausea and constipation, so don't take more than you need. SPECIAL CARE INSTRUCTIONS: TEDs/Elastic Stockings: * The white elastic stockings help limit swelling and prevent blood clots from forming in your legs. The more you wear them, the more they work. * Wear them for six weeks. Prevention of Infection: * Take antibiotics one hour before any dental cleaning, dental work, urological procedure, gastrointestinal procedure or any invasive surgery in order to prevent your new joint from getting infected. * You may get the antibiotics from the doctor performing the procedure or you may call our office at before and we will call in a prescription to the pharmacy of your choice. Things to Watch For: * Drainage from the incision site that occurs more than one week after your surgery. * Severely increased leg pain or swelling. * Increased redness at the incision site. * Fever above 102 degrees Fahrenheit. * Unusual chest pain or shortness of breath. * Unusual pain or burning with urination. Call [facility] at with any of the above problems or if you have any questions about your medicines or recovery. FOLLOW UP VISIT: Make an appointment to see your doctor for approximately two weeks after surgery for a progress check and staple removal by calling the office at . Pending Studies at Discharge: No Stand-Alone Forms: My [facility] mydala, Smoking Cessation Medications and DC Order Prescriptions: New tramadol 50 mg tablet 50 mg PO Q8H PRN (Reason: pain) Qty: 14 RF: 0 Continued (DME) OneTouch Ultra Blue Test Strip Strip See Rx Instructions .ROUTE .MEDSUPPLY Qty: 200 RF: 3 levothyroxine 75 mcg tablet 75 mcg PO QAM Qty: 90 RF: 3 omeprazole 20 mg tablet,delayed release (DR/EC) 20 mg PO QAM Qty: 90 RF: 3 (DME) blood-glucose meter [OneTouch Ultra2 Meter] [facility] See Rx Instructions .ROUTE .MEDSUPPLY Qty: 1 RF: 0 (DME) OneTouch Ultra Blue Test Strip Strip See Rx Instructions .ROUTE .MEDSUPPLY Qty: 200 RF: 3 (DME) FreeStyle Osorio 2 Sensor Kit See Rx Instructions .ROUTE .MEDSUPPLY Qty: 6 RF: 3 Glucagon (HCl) Emergency Kit 1 mg recon soln 1 mg SQ Q20M PRN (Reason: hypoglycemia) Qty: 1 RF: 0 aspirin 81 mg Tablet,Delayed Release (Dr/Ec) 81 mg PO HS RF: 0 cholecalciferol (vitamin D3) [Vitamin D3] 50 mcg (2,000 unit) capsule 4,000 units PO QDL RF: 0 simvastatin 20 mg tablet 20 mg PO HS RF: 0 insulin lispro [Humalog U-100 Insulin] 100 unit/mL solution 0 unit continuous subcutaneous infusion CONTINOUS RF: 0 Discharge Orders: Discharge Order (Routine); Ordered 07/26/21 Ordered By: Johnnie Mars/Other Patient Handouts: Hip Replace Total Activity, Hip Replace Total Dc Admission Data Admit Date/Time: 07/23/21 20:46 Attending Provider: Raghu Morrell Admit Provider: Israel Bella Primary Care Provider: Elisa Call V. Other Providers: Stiven Salcido ; Wander Carlos ; [facility] Other Interventions: Discharge Summary Assessment (RN) Last Done: 07/26/21 13:39 Supervising Physician Co-Signing Physician Notes Attending attestation Pt seen and examined in concert with Dr. Ray. In agreement with the documented findings as noted in the resident documentation with any exceptions or additions as noted here. Pain well controlled on present regimen. Participating in PT with enthusiasm On examination, S1/S2 nl RRR no MCG. CTAB. Abd NT/ND BS+ve Left hip fracture with concern for osteoporotic fx - ortho consult - tramadol for breakthrough pain control, outpatient PT, calcium supplementation, DEXA as outpatient DMI on insulin pump - glycemic consult - insulin pump to home regimen for outpatient management Else see resident documentation as noted. Total attending time spent on this case on the day of discharge:35 minutes. Resident Activity Tracking Resident Involvement: Resident Care Provided Care Provided: Adult Hospital Medicine
--- NOTE | 2021-07-26 17:42 | Electrocardiogram Report ---
Test Reason : Blood Pressure : / mmHG Vent. Rate : 086 BPM Atrial Rate : 086 BPM P-R Int : 104 ms QRS Dur : 082 ms QT Int : 322 ms P-R-T Axes : 031 044 002 degrees QTc Int : 385 ms Sinus rhythm with PVC (fusion) Nonspecific ST and T wave abnormality Abnormal ECG When compared with ECG of 25-JAN-2013 20:25, Sinus rhythm has replaced Junctional rhythm QRS duration has decreased ST no longer depressed in Inferior leads Nonspecific T wave abnormality has replaced inverted T waves in Inferior leads Nonspecific T wave abnormality has replaced inverted T waves in Anterolateral leads QT has shortened Confirmed by Viral Cabrera ([id number]) on 07/26/2021 5:42:08 PM Referred By: REFERRED SELF Confirmed By:Milton Cabrera
== END 2021-07-26 14:15 | disposition home health service (06) | DRG 522 ==
LOC: ED 17:08 → 3N 20:46 → SUATTDRO 20:46 → 3N 22:30